=== PATIENT | male | born 1955 | race African-American/Black ===

== ENCOUNTER 2020-12-24 18:19 | Inpatient (IN) | payer MEDICAID ==
[~2020-12-24] VITALS: Ht 172.7 cm; Wt 132.4 kg
[2020-12-24] MEDS ORDERED: METHYLPREDNISOLONE SOD SUCC 125 MG/2 ML VIAL IV STA (19:02)
[2020-12-24] MEDS ORDERED: IPRATROPIUM BROMIDE (0.02%) 0.5MG/2.5ML NEB HHN STA (19:02)
[2020-12-24] MEDS ORDERED: ASPIRIN 81MG TABLET PO ONE (19:15)
[2020-12-24 19:29] LABS: BASOPHILS % 0.8 % (0.0-2.0); EOSINOPHILS % 0.8 % (0.0-5.0); HEMATOCRIT. 36.8 % (42.0-52.0); HEMOGLOBIN. 11.9 g/dL (14.0-18.0); MEAN CORPUSCULAR HEMOGLOBIN 25.1 pg (28.0-32.0); MEAN CORPUSCULAR VOLUME 77.5 fL (80.0-94.0); MEAN PLATELET VOLUME 8.7 fl (7.4-10.4); MONOCYTES % 9.2 % (2.0-8.0); NEUTROPHILS % 67.2 % (40.0-76.0); PLATELET 287 x1000/uL (130-400); RED BLOOD CELL COUNT 4.75 mill/uL (4.7-6.1); RED CELL DISTRIBUTION WIDTH 17.8 % (11.6-14.6)
[2020-12-24] MEDS: NITROGLYCERIN 50MG PREMIX 250 ML IV ONE ×2 (19:30→20:19)
[2020-12-24] MEDS ORDERED: NITROGLYCERIN 0.4MG TABLET SL SL PRN (19:30)
[2020-12-24 19:34] LABS: CHLORIDE 107 mEq/L (98-107)
[2020-12-24] MEDS ORDERED: FUROSEMIDE 40MG/4ML VIAL IVP ONE (19:45)
[2020-12-24] MEDS: ALBUTEROL (0.083%) 2.5MG/3ML NEB HHN SCH ×3 (20:56→21:20)
[2020-12-24 21:28] LABS: BG BASE EXCESS -2.2 mmol/L (-2.0-2.0); BG CARBOXYHEMOGLOBIN 0.3 % (0.5-1.5); BG DEOXYHEMOGLOBIN 2.1 % (0.0-5.0); BG FRACTION INSPIRED OXYGEN 30; BG HCO3 ACT 23.2 mmol/L (22.0-26.0); BG METHEMOGLOBIN 0.2 % (0.0-1.5); BG OXYGEN SATURATION 97.9 % (92.0-98.5); BG OXYHEMOGLOBIN 97.4 % (94.0-97.0); BG PO2 132.5 mmHg (75.0-100.0); BG SAMPLE SITE RIGHT RADIAL; BG TOTAL HEMOGLOBIN 11.8 g/dL (12.0-18.0); BG VENT MODE MASK - BIPAP
[2020-12-24] MEDS ORDERED: HEPARIN 60 UNITS/KG BOLUS IV NR (22:00)
[2020-12-24] MEDS ORDERED: HEPARIN BOLUS PRN aPTT <30 IV (22:00)
[2020-12-24] MEDS ORDERED: ADENOSINE 3 MG/ML 2ML VIAL IV ONE ×2 (22:00→22:30)
[2020-12-24] MEDS ORDERED: DILTIAZEM HCL 125 MG in DEXT 5% WATER 100 ML IV ONE ×2 (22:45→23:15)
[2020-12-24] MEDS ORDERED: DILTIAZEM HCL 5MG/ML 5ML VIAL IV ONE (22:45)
[2020-12-24] MEDS ORDERED: DILTIAZEM HCL 125 MG in DEXT 5% WATER 100 ML IV NR (23:15)
[2020-12-24] MEDS: HEPARIN 25,000 UNITS PREMIX 250 ML IV SCH (23:28)
[2020-12-25] MEDS ORDERED: SODIUM CHLORIDE 0.9% 500 ML IV ONE (00:45)
[2020-12-25] MEDS ORDERED: DIGOXIN 500MCG/2ML AMP IV ONE (01:00)
[2020-12-25] MEDS: ESMOLOL 2500MG PREMIX 250 ML IV SCH ×4 (03:39→15:44)
[2020-12-25 06:10] LABS: CLARITY URINE CLEAR (CLEAR); COLOR URINE YELLOW (YELLOW); KETONES URINE NEGATIVE (NEGATIVE); LEUKOCYTE ESTERASE URINE NEGATIVE (NEGATIVE); NITRITE URINE NEGATIVE (NEGATIVE); OCCULT BLOOD URINE 1+ (NEGATIVE); PH URINE 5.5 (4.5-8.0); PROTEIN URINE 3+ (NEGATIVE); SPECIFIC GRAVITY URINE 1.017 (1.005-1.030); UROBILINOGEN URINE 0.2 E.U./dL (0.2-1.0)
[2020-12-25] MEDS: HEPARIN BOLUS PRN aPTT 30-44 IV (06:47)
[2020-12-25] MEDS ORDERED: IPRATROPIUM/ALBUTEROL 0.5-3(2.5)MG/3ML NEB HHN PRN (17:30)
[2020-12-25] MEDS ORDERED: HYDROCODONE/ACETAMINOPHEN 5/325MG TABLET PO PRN (17:30)
[2020-12-25] MEDS ORDERED: ACETAMINOPHEN 325MG TABLET PO PRN (17:30)
[2020-12-25] MEDS: FUROSEMIDE 40MG/4ML VIAL IVP SCH (18:49)
[2020-12-25 21:01] LABS: BASOPHILS % 0.5 % (0.0-2.0); HEMATOCRIT. 34.4 % (42.0-52.0); HEMOGLOBIN. 11.4 g/dL (14.0-18.0); LYMPHOCYTES % 13.2 % (20.0-50.0); MEAN CORPUSCULAR HEMOGLOBIN 25.6 pg (28.0-32.0); MEAN CORPUSCULAR VOLUME 77.1 fL (80.0-94.0); MEAN PLATELET VOLUME 8.4 fl (7.4-10.4); NEUTROPHILS % 76.3 % (40.0-76.0); PLATELET 279 x1000/uL (130-400); RED BLOOD CELL COUNT 4.47 mill/uL (4.7-6.1); RED CELL DISTRIBUTION WIDTH 17.3 % (11.6-14.6)
[2020-12-25 22:06] LABS: FOLIC ACID (FOLATE) SERUM 13.6 ng/mL (>5.38)
[2020-12-26] VITALS (74 sets, daily range): BP systolic 81–180; BP diastolic 37–139
[2020-12-26] MEDS: ESMOLOL 2500MG PREMIX 250 ML IV SCH ×2 (00:56→06:43)
[2020-12-26] MEDS: HEPARIN BOLUS PRN aPTT 30-44 IV (00:58)
[2020-12-26] MEDS: HEPARIN 25,000 UNITS PREMIX 250 ML IV SCH ×2 (01:07→06:43)
[2020-12-26] MEDS ORDERED: LIDOCAINE HCL/EPINEPHRINE 1%-EPI 1:100,000 50 ML VIAL INFIL ONE (03:15)
[2020-12-26] MEDS ORDERED: LIDOCAINE HCL 1% 20ML VIAL (Pyxis) INJ INFIL ONE (03:15)
[2020-12-26] MEDS: FUROSEMIDE 40MG/4ML VIAL IVP SCH (07:51)
[2020-12-26 07:56] LABS: BASOPHILS % 0.3 % (0.0-2.0); EOSINOPHILS % 0.1 % (0.0-5.0); HEMATOCRIT. 35.8 % (42.0-52.0); HEMOGLOBIN. 11.7 g/dL (14.0-18.0); LYMPHOCYTES % 15.2 % (20.0-50.0); MEAN CORPUSCULAR HEMOGLOBIN 25.3 pg (28.0-32.0); MEAN CORPUSCULAR VOLUME 77.1 fL (80.0-94.0); MEAN PLATELET VOLUME 8.4 fl (7.4-10.4); NEUTROPHILS % 74.4 % (40.0-76.0); PLATELET 278 x1000/uL (130-400); RED BLOOD CELL COUNT 4.65 mill/uL (4.7-6.1); RED CELL DISTRIBUTION WIDTH 17.6 % (11.6-14.6)
[2020-12-26 09:46] LABS: *AMPHETAMINES SCREEN URINE NEGATIVE (NEGATIVE); *BARBITURATES SCREEN URINE NEGATIVE (NEGATIVE)
[2020-12-26 09:47] LABS: *BENZODIAZEPINES SCREEN URINE NEGATIVE (NEGATIVE); *COCAINE SCREEN URINE NEGATIVE (NEGATIVE); METHADONE URINE SCREEN NEGATIVE (NEGATIVE); OPIATES URINE SCREEN NEGATIVE (NEGATIVE); PHENCYCLIDINE URINE SCREEN NEGATIVE (NEGATIVE)
[2020-12-26 09:48] LABS: CANNABINOID URINE SCREEN NEGATIVE (NEGATIVE)
[2020-12-26] MEDS: ESMOLOL 2500MG PREMIX 250 ML IV PRN ×3 (10:23→18:23)
[2020-12-26] MEDS: FUROSEMIDE 100MG/10ML VIAL IVP SCH ×2 (11:07→20:01)
[2020-12-26] MEDS: METOLAZONE 5MG TABLET PO SCH ×2 (11:08→18:16)
[2020-12-26] MEDS: ENOXAPARIN 150MG/ML SYR SUBCUT SCH (11:08)
[2020-12-26] MEDS ORDERED: NALOXONE HCL 0.4MG/ML VIAL IV PRN (12:30)
[2020-12-26] MEDS: DILTIAZEM HCL 60MG TABLET PO SCH ×2 (12:49→22:07)
[2020-12-26] MEDS ORDERED: DIGOXIN 500MCG/2ML AMP IV NR (14:00)
[2020-12-26] MEDS ORDERED: DILTIAZEM HCL 125 MG in DEXT 5% WATER 100 ML IV PRN (14:15)
[2020-12-26] MEDS ORDERED: INFLUENZA VACCINE 05/PF 0.5 ML SYRINGE IM ONE (16:00)
[2020-12-26] MEDS ORDERED: PNEUMOCOCCAL 23-VAL P-SAC VAC 0.5 ML IM ONE (16:00)
[2020-12-27] VITALS (96 sets, daily range): BP systolic 88–176; BP diastolic 37–143
[2020-12-27] MEDS: ESMOLOL 2500MG PREMIX 250 ML IV PRN ×2 (00:19→03:20)
[2020-12-27] MEDS: FUROSEMIDE 100MG/10ML VIAL IVP SCH ×3 (03:04→20:20)
[2020-12-27] MEDS: DILTIAZEM HCL 60MG TABLET PO SCH (05:28)
[2020-12-27 06:21] LABS: BASOPHILS % 0.2 % (0.0-2.0); LYMPHOCYTES % 20.3 % (20.0-50.0); MEAN CORPUSCULAR HEMOGLOBIN 24.9 pg (28.0-32.0); MEAN PLATELET VOLUME 8.9 fl (7.4-10.4); MONOCYTES % 9.6 % (2.0-8.0); NEUTROPHILS % 68.9 % (40.0-76.0); PLATELET 267 x1000/uL (130-400); RED CELL DISTRIBUTION WIDTH 16.9 % (11.6-14.6)
[2020-12-27] MEDS: METOLAZONE 5MG TABLET PO SCH ×2 (07:50→17:06)
[2020-12-27] MEDS: ENOXAPARIN 150MG/ML SYR SUBCUT SCH (07:50)
[2020-12-27] MEDS ORDERED: DILTIAZEM HCL 30MG TABLET PO SCH (10:15)
[2020-12-27] MEDS: POTASSIUM CHLORIDE 20MEQ/PACKET PO SCH (10:35)
[2020-12-27 13:28] LABS: BG BASE EXCESS 7.3 mmol/L (-2.0-2.0); BG CARBOXYHEMOGLOBIN 0.6 % (0.5-1.5); BG DEOXYHEMOGLOBIN 20.7 % (0.0-5.0); BG HCO3 ACT 36.3 mmol/L (22.0-26.0); BG METHEMOGLOBIN 0.2 % (0.0-1.5); BG OXYGEN SATURATION 79.1 % (92.0-98.5); BG OXYHEMOGLOBIN 78.5 % (94.0-97.0); BG PCO2 74.8 mmHg (35.0-45.0); BG PH 7.304 (7.350-7.450); BG PO2 49.3 mmHg (75.0-100.0); BG SAMPLE SITE LEFT RADIAL; BG TOTAL HEMOGLOBIN 13.1 g/dL (12.0-18.0); BG VENT MODE NASAL CANNULA
[2020-12-27] MEDS: DILTIAZEM HCL 90MG TABLET PO SCH ×2 (13:45→22:55)
[2020-12-27] MEDS: IPRATROPIUM/ALBUTEROL 0.5-3(2.5)MG/3ML NEB HHN SCH ×2 (16:39→20:39)
[2020-12-27 16:44] LABS: BG BASE EXCESS 9.9 mmol/L (-2.0-2.0); BG CARBOXYHEMOGLOBIN 0.3 % (0.5-1.5); BG DEOXYHEMOGLOBIN 2.2 % (0.0-5.0); BG FRACTION INSPIRED OXYGEN 50; BG HCO3 ACT 38.6 mmol/L (22.0-26.0); BG METHEMOGLOBIN 0.4 % (0.0-1.5); BG OXYGEN SATURATION 97.8 % (92.0-98.5); BG OXYHEMOGLOBIN 97.1 % (94.0-97.0); BG PCO2 74.3 mmHg (35.0-45.0); BG PH 7.334 (7.350-7.450); BG PO2 126.7 mmHg (75.0-100.0); BG SAMPLE SITE LEFT RADIAL; BG TOTAL HEMOGLOBIN 13.2 g/dL (12.0-18.0); BG TOTAL RESPIRATORY RATE 20 b/min; BG VENT MODE MASK - BIPAP
[2020-12-27 19:20] LABS: BG BASE EXCESS 8.6 mmol/L (-2.0-2.0); BG CARBOXYHEMOGLOBIN 0.5 % (0.5-1.5); BG DEOXYHEMOGLOBIN 1.8 % (0.0-5.0); BG FRACTION INSPIRED OXYGEN 40; BG HCO3 ACT 36.3 mmol/L (22.0-26.0); BG METHEMOGLOBIN 0.2 % (0.0-1.5); BG OXYGEN SATURATION 98.2 % (92.0-98.5); BG OXYHEMOGLOBIN 97.5 % (94.0-97.0); BG PCO2 65.5 mmHg (35.0-45.0); BG PH 7.362 (7.350-7.450); BG PO2 131.3 mmHg (75.0-100.0); BG TOTAL HEMOGLOBIN 13.3 g/dL (12.0-18.0); BG VENT MODE MASK - BIPAP
[2020-12-27] MEDS: CARVEDILOL 3.125 MG TABLET PO SCH (20:20)
[2020-12-27] MEDS: METHYLPREDNISOLONE SOD SUCC 125 MG/2 ML VIAL IV SCH (22:55)
[2020-12-28] VITALS (64 sets, daily range): BP systolic 114–187; BP diastolic 54–169
[2020-12-28] MEDS: CLONIDINE 0.1MG TABLET PO PRN (00:01)
[2020-12-28] MEDS: IPRATROPIUM/ALBUTEROL 0.5-3(2.5)MG/3ML NEB HHN SCH ×6 (00:26→20:00)
[2020-12-28] MEDS: METHYLPREDNISOLONE SOD SUCC 125 MG/2 ML VIAL IV SCH (05:21)
[2020-12-28] MEDS: FUROSEMIDE 100MG/10ML VIAL IVP SCH ×3 (05:21→19:48)
[2020-12-28] MEDS: DILTIAZEM HCL 90MG TABLET PO SCH ×3 (05:22→19:49)
[2020-12-28 06:20] LABS: BASOPHILS % 0.2 % (0.0-2.0); EOSINOPHILS % 0.2 % (0.0-5.0); HEMATOCRIT. 38.1 % (42.0-52.0); HEMOGLOBIN. 12.6 g/dL (14.0-18.0); LYMPHOCYTES % 10.4 % (20.0-50.0); MEAN CORPUSCULAR HEMOGLOBIN 25.2 pg (28.0-32.0); MEAN CORPUSCULAR VOLUME 76.5 fL (80.0-94.0); MEAN PLATELET VOLUME 8.7 fl (7.4-10.4); MONOCYTES % 1.9 % (2.0-8.0); NEUTROPHILS % 87.3 % (40.0-76.0); PLATELET 270 x1000/uL (130-400); RED BLOOD CELL COUNT 4.98 mill/uL (4.7-6.1); RED CELL DISTRIBUTION WIDTH 16.9 % (11.6-14.6)
[2020-12-28 06:38] LABS: PHOSPHORUS 4.8 mg/dL (2.5-4.9)
[2020-12-28] MEDS: CARVEDILOL 3.125 MG TABLET PO SCH (08:41)
[2020-12-28] MEDS: POTASSIUM CHLORIDE 20MEQ/PACKET PO SCH (08:41)
[2020-12-28] MEDS: ENOXAPARIN 150MG/ML SYR SUBCUT SCH (08:41)
[2020-12-28] MEDS: METOLAZONE 5MG TABLET PO SCH ×2 (08:41→17:33)
[2020-12-28] MEDS: METOPROLOL TARTRATE 25MG TABLET PO SCH ×2 (11:12→19:50)
[2020-12-28] MEDS ORDERED: POTASSIUM CHLORIDE 20MEQ TABLET SR PO SCH ×2 (17:15→17:30)
[2020-12-28] MEDS: LORAZEPAM 0.5MG TABLET PO PRN (17:33)
[2020-12-28] MEDS ORDERED: METOPROLOL TARTRATE 5MG/5ML VIAL IV PRN (18:30)
[2020-12-28] MEDS: METOPROLOL TARTRATE 5MG/5ML VIAL IV PRN (18:45)
[2020-12-28] MEDS: ONDANSETRON HCL 4MG/2ML INJ IV PRN (19:48)
[2020-12-29] VITALS (12 sets, daily range): BP systolic 132–168; BP diastolic 41–85
[2020-12-29] MEDS ORDERED: DIGOXIN 500MCG/2ML AMP IV SCH (00:15)
[2020-12-29] MEDS: METOPROLOL TARTRATE 5MG/5ML VIAL IV PRN (01:05)
[2020-12-29] MEDS: CLONIDINE 0.1MG TABLET PO PRN ×2 (03:02→09:04)
[2020-12-29] MEDS: FUROSEMIDE 100MG/10ML VIAL IVP SCH ×3 (04:00→20:23)
[2020-12-29] MEDS: DILTIAZEM HCL 90MG TABLET PO SCH (05:17)
[2020-12-29] MEDS: ONDANSETRON HCL 4MG/2ML INJ IV PRN (08:23)
[2020-12-29] MEDS: POTASSIUM CHLORIDE 20MEQ/PACKET PO SCH ×2 (08:23→16:38)
[2020-12-29] MEDS: ENOXAPARIN 150MG/ML SYR SUBCUT SCH (08:23)
[2020-12-29] MEDS: METOPROLOL TARTRATE 25MG TABLET PO SCH ×2 (08:23→21:22)
[2020-12-29] MEDS: IPRATROPIUM/ALBUTEROL 0.5-3(2.5)MG/3ML NEB HHN SCH ×5 (08:41→21:08)
[2020-12-29] MEDS: METOLAZONE 5MG TABLET PO SCH ×2 (08:55→16:38)
[2020-12-29 09:09] LABS: BG BASE EXCESS 18.9 mmol/L (-2.0-2.0); BG CARBOXYHEMOGLOBIN 0.3 % (0.5-1.5); BG DEOXYHEMOGLOBIN 2.4 % (0.0-5.0); BG FRACTION INSPIRED OXYGEN 40; BG OXYGEN SATURATION 97.6 % (92.0-98.5); BG OXYHEMOGLOBIN 97.3 % (94.0-97.0); BG PCO2 68.9 mmHg (35.0-45.0); BG PH 7.452 (7.350-7.450); BG PO2 106.6 mmHg (75.0-100.0); BG SAMPLE SITE RIGHT RADIAL; BG TOTAL HEMOGLOBIN 14.3 g/dL (12.0-18.0); BG VENT MODE MASK - BIPAP
[2020-12-29] MEDS ORDERED: DILTIAZEM HCL 30MG TABLET PO SCH (11:00)
[2020-12-29] MEDS: DILTIAZEM HCL 60MG TABLET PO SCH ×2 (14:18→22:08)
[2020-12-30] VITALS (12 sets, daily range): BP systolic 123–163; BP diastolic 46–95
[2020-12-30] MEDS: IPRATROPIUM/ALBUTEROL 0.5-3(2.5)MG/3ML NEB HHN SCH ×6 (02:29→20:00)
[2020-12-30] MEDS: FUROSEMIDE 100MG/10ML VIAL IVP SCH ×3 (04:20→20:15)
[2020-12-30] MEDS: DILTIAZEM HCL 60MG TABLET PO SCH ×3 (05:53→21:39)
[2020-12-30 06:17] LABS: BASOPHILS % 0.1 % (0.0-2.0); EOSINOPHILS % 0.4 % (0.0-5.0); HEMATOCRIT. 41.7 % (42.0-52.0); HEMOGLOBIN. 13.7 g/dL (14.0-18.0); MEAN CORPUSCULAR HEMOGLOBIN 25.6 pg (28.0-32.0); MEAN CORPUSCULAR VOLUME 77.8 fL (80.0-94.0); MEAN PLATELET VOLUME 8.7 fl (7.4-10.4); NEUTROPHILS % 72.5 % (40.0-76.0); PLATELET 275 x1000/uL (130-400); RED BLOOD CELL COUNT 5.36 mill/uL (4.7-6.1); RED CELL DISTRIBUTION WIDTH 16.8 % (11.6-14.6)
[2020-12-30 06:19] LABS: PHOSPHORUS 4.4 mg/dL (2.5-4.9)
[2020-12-30 08:45] LABS: BG BASE EXCESS 23.6 mmol/L (-2.0-2.0); BG CARBOXYHEMOGLOBIN 0.5 % (0.5-1.5); BG DEOXYHEMOGLOBIN 4.4 % (0.0-5.0); BG FRACTION INSPIRED OXYGEN 40; BG HCO3 ACT 50.8 mmol/L (22.0-26.0); BG METHEMOGLOBIN 0.3 % (0.0-1.5); BG OXYGEN SATURATION 95.6 % (92.0-98.5); BG OXYHEMOGLOBIN 94.8 % (94.0-97.0); BG PCO2 62.6 mmHg (35.0-45.0); BG PH 7.527 (7.350-7.450); BG PO2 77.7 mmHg (75.0-100.0); BG SAMPLE SITE RIGHT RADIAL; BG TOTAL HEMOGLOBIN 14.5 g/dL (12.0-18.0); BG TOTAL RESPIRATORY RATE 23 b/min; BG VENT MODE MASK - BIPAP
[2020-12-30] MEDS: ENOXAPARIN 150MG/ML SYR SUBCUT SCH (09:10)
[2020-12-30] MEDS: DOCUSATE SODIUM 100MG CAPSULE PO PRN (09:11)
[2020-12-30] MEDS: METOPROLOL TARTRATE 25MG TABLET PO SCH ×2 (09:11→20:15)
[2020-12-30] MEDS: METOLAZONE 5MG TABLET PO SCH ×2 (09:11→16:53)
[2020-12-30] MEDS: POTASSIUM CHLORIDE 20MEQ/PACKET PO SCH ×3 (09:11→16:53)
[2020-12-30 10:27] LABS: PHOSPHORUS 4.2 mg/dL (2.5-4.9)
[2020-12-30] MEDS: LORAZEPAM 0.5MG TABLET PO PRN ×3 (10:27→22:42)
[2020-12-30] MEDS: METOPROLOL TARTRATE 5MG/5ML VIAL IV PRN ×2 (14:05→22:39)
[2020-12-30] MEDS ORDERED: POTASSIUM CHLORIDE 20MEQ TABLET SR PO NR (15:00)
[2020-12-30 15:59] LABS: CREATINE KINASE 124 IU/L (39-308)
[2020-12-30] MEDS: CLONIDINE 0.1MG TABLET PO PRN (17:23)
[2020-12-30] MEDS: HYDROCODONE/ACETAMINOPHEN 5/325MG TABLET PO PRN (18:15)
[2020-12-30] MEDS ORDERED: METOPROLOL TARTRATE 5MG/5ML VIAL IV NR (18:45)
[2020-12-31] VITALS (12 sets, daily range): BP systolic 105–164; BP diastolic 48–94
[2020-12-31] MEDS: FUROSEMIDE 100MG/10ML VIAL IVP SCH ×3 (03:06→17:22)
[2020-12-31] MEDS: IPRATROPIUM/ALBUTEROL 0.5-3(2.5)MG/3ML NEB HHN SCH ×4 (04:00→20:40)
[2020-12-31] MEDS ORDERED: METOPROLOL TARTRATE 5MG/5ML VIAL IV NR (04:00)
[2020-12-31] MEDS: DILTIAZEM HCL 125 MG in DEXT 5% WATER 100 ML IV SCH ×2 (06:32→20:31)
[2020-12-31 07:59] LABS: BG BASE EXCESS 26.4 mmol/L (-2.0-2.0); BG CARBOXYHEMOGLOBIN 0.9 % (0.5-1.5); BG DEOXYHEMOGLOBIN 2.6 % (0.0-5.0); BG FRACTION INSPIRED OXYGEN 40; BG HCO3 ACT 54.9 mmol/L (22.0-26.0); BG METHEMOGLOBIN 0.2 % (0.0-1.5); BG OXYGEN SATURATION 97.4 % (92.0-98.5); BG OXYHEMOGLOBIN 96.3 % (94.0-97.0); BG PCO2 66.9 mmHg (35.0-45.0); BG PH 7.532 (7.350-7.450); BG PO2 96.5 mmHg (75.0-100.0); BG SAMPLE SITE LEFT RADIAL; BG TOTAL HEMOGLOBIN 16.2 g/dL (12.0-18.0); BG VENT MODE MASK - BIPAP
[2020-12-31] MEDS: ENOXAPARIN 150MG/ML SYR SUBCUT SCH (08:52)
[2020-12-31] MEDS: POTASSIUM CHLORIDE 20MEQ/PACKET PO SCH ×2 (08:52→17:22)
[2020-12-31] MEDS: METOLAZONE 5MG TABLET PO SCH (08:53)
[2020-12-31] MEDS: METOPROLOL TARTRATE 25MG TABLET PO SCH ×2 (08:53→20:29)
[2020-12-31] MEDS ORDERED: DILTIAZEM HCL 125 MG in DEXT 5% WATER 100 ML IV SCH (10:55)
[2020-12-31] MEDS: LORAZEPAM 0.5MG TABLET PO PRN (20:26)
[2021-01-01] VITALS (10 sets, daily range): BP systolic 124–154; BP diastolic 56–91
[2021-01-01] MEDS: HYDROCODONE/ACETAMINOPHEN 5/325MG TABLET PO PRN ×2 (02:08→11:48)
[2021-01-01] MEDS: LORAZEPAM 0.5MG TABLET PO PRN ×3 (02:08→17:17)
[2021-01-01] MEDS: IPRATROPIUM/ALBUTEROL 0.5-3(2.5)MG/3ML NEB HHN SCH ×4 (02:34→16:00)
[2021-01-01 07:28] LABS: INR 1.2; PROTHROMBIN TIME 12.3 sec (9.6-11.0)
[2021-01-01 07:32] LABS: BASOPHILS % 0.3 % (0.0-2.0); EOSINOPHILS % 1.6 % (0.0-5.0); HEMATOCRIT. 47.1 % (42.0-52.0); HEMOGLOBIN. 15.1 g/dL (14.0-18.0); LYMPHOCYTES % 14.9 % (20.0-50.0); MEAN CORPUSCULAR HEMOGLOBIN 25.3 pg (28.0-32.0); MEAN CORPUSCULAR VOLUME 79.1 fL (80.0-94.0); MEAN PLATELET VOLUME 9.1 fl (7.4-10.4); MONOCYTES % 9.3 % (2.0-8.0); NEUTROPHILS % 73.9 % (40.0-76.0); PLATELET 267 x1000/uL (130-400); RED BLOOD CELL COUNT 5.95 mill/uL (4.7-6.1); RED CELL DISTRIBUTION WIDTH 16.9 % (11.6-14.6)
[2021-01-01] MEDS: DILTIAZEM HCL 125 MG in DEXT 5% WATER 100 ML IV SCH ×3 (08:14→12:25)
[2021-01-01] MEDS ORDERED: DILTIAZEM HCL 125 MG in DEXT 5% WATER 100 ML IV SCH (08:15)
[2021-01-01] MEDS: FUROSEMIDE 100MG/10ML VIAL IVP SCH ×2 (09:12→17:17)
[2021-01-01] MEDS: METOLAZONE 5MG TABLET PO SCH (09:13)
[2021-01-01] MEDS: METOPROLOL TARTRATE 25MG TABLET PO SCH ×2 (09:13→21:20)
[2021-01-01] MEDS: POTASSIUM CHLORIDE 20MEQ/PACKET PO SCH ×2 (09:13→17:17)
[2021-01-01] MEDS: ENOXAPARIN 150MG/ML SYR SUBCUT SCH (09:14)
[2021-01-01] MEDS: DILTIAZEM HCL 5MG/ML 5ML VIAL IV PRN ×2 (10:20→17:23)
[2021-01-01] MEDS ORDERED: DILTIAZEM HCL 125 MG in DEXT 5% WATER 100 ML IV PRN (10:30)
[2021-01-01 11:24] LABS: BG BASE EXCESS 21.4 mmol/L (-2.0-2.0); BG CARBOXYHEMOGLOBIN 1.2 % (0.5-1.5); BG DEOXYHEMOGLOBIN 2.2 % (0.0-5.0); BG FRACTION INSPIRED OXYGEN 35; BG HCO3 ACT 50.1 mmol/L (22.0-26.0); BG METHEMOGLOBIN 0.3 % (0.0-1.5); BG OXYGEN SATURATION 97.8 % (92.0-98.5); BG OXYHEMOGLOBIN 96.3 % (94.0-97.0); BG PCO2 71.1 mmHg (35.0-45.0); BG PH 7.466 (7.350-7.450); BG PO2 103.4 mmHg (75.0-100.0); BG SAMPLE SITE LEFT RADIAL; BG TOTAL HEMOGLOBIN 15.4 g/dL (12.0-18.0); BG TOTAL RESPIRATORY RATE 22 b/min; BG VENT MODE MASK - BIPAP
[2021-01-01] MEDS: DILTIAZEM HCL 60MG TABLET PO SCH ×3 (13:27→21:20)
[2021-01-01] MEDS: METOPROLOL TARTRATE 5MG/5ML VIAL IV PRN (14:01)
[2021-01-01] MEDS: DOCUSATE SODIUM 100MG CAPSULE PO PRN (17:18)
[2021-01-01] MEDS ORDERED: METOPROLOL TARTRATE 5MG/5ML VIAL IV NR (19:45)
[2021-01-02] VITALS (12 sets, daily range): BP systolic 119–173; BP diastolic 53–92
[2021-01-02] MEDS: DILTIAZEM HCL 125 MG in DEXT 5% WATER 100 ML IV SCH ×3 (00:40→21:18)
[2021-01-02] MEDS: DILTIAZEM HCL 60MG TABLET PO SCH ×3 (06:04→21:14)
[2021-01-02 06:52] LABS: BASOPHILS % 0.3 % (0.0-2.0); EOSINOPHILS % 3.2 % (0.0-5.0); HEMATOCRIT. 47.6 % (42.0-52.0); LYMPHOCYTES % 15.4 % (20.0-50.0); MEAN CORPUSCULAR HEMOGLOBIN 24.9 pg (28.0-32.0); MEAN CORPUSCULAR VOLUME 78.8 fL (80.0-94.0); MEAN PLATELET VOLUME 9.5 fl (7.4-10.4); MONOCYTES % 8.8 % (2.0-8.0); NEUTROPHILS % 72.3 % (40.0-76.0); PLATELET 263 x1000/uL (130-400); RED BLOOD CELL COUNT 6.03 mill/uL (4.7-6.1)
[2021-01-02 07:27] LABS: HEPATITIS B SURFACE ANTIGEN NEGATIVE
[2021-01-02] MEDS: IPRATROPIUM/ALBUTEROL 0.5-3(2.5)MG/3ML NEB HHN SCH ×4 (07:53→20:20)
[2021-01-02] MEDS: ENOXAPARIN 150MG/ML SYR SUBCUT SCH (09:24)
[2021-01-02] MEDS: POTASSIUM CHLORIDE 20MEQ/PACKET PO SCH ×2 (09:24→17:26)
[2021-01-02] MEDS: METOLAZONE 5MG TABLET PO SCH (09:25)
[2021-01-02] MEDS: METOPROLOL TARTRATE 25MG TABLET PO SCH ×2 (09:25→21:14)
[2021-01-02] MEDS: FUROSEMIDE 100MG/10ML VIAL IVP SCH ×2 (09:26→17:00)
[2021-01-02 10:46] LABS: BG BASE EXCESS 18.6 mmol/L (-2.0-2.0); BG CARBOXYHEMOGLOBIN 1.2 % (0.5-1.5); BG DEOXYHEMOGLOBIN 5.4 % (0.0-5.0); BG FRACTION INSPIRED OXYGEN 32; BG METHEMOGLOBIN 0.2 % (0.0-1.5); BG OXYGEN SATURATION 94.5 % (92.0-98.5); BG OXYHEMOGLOBIN 93.2 % (94.0-97.0); BG PCO2 68.8 mmHg (35.0-45.0); BG PH 7.452 (7.350-7.450); BG PO2 75.7 mmHg (75.0-100.0); BG SAMPLE SITE LEFT RADIAL; BG TOTAL HEMOGLOBIN 15.4 g/dL (12.0-18.0); BG VENT MODE NASAL CANNULA
[2021-01-02] MEDS: DOCUSATE SODIUM 100MG CAPSULE PO PRN (12:31)
[2021-01-02] MEDS: LORAZEPAM 0.5MG TABLET PO PRN ×2 (12:31→21:15)
[2021-01-02] MEDS ORDERED: POTASSIUM CHLORIDE 20MEQ/PACKET PO NR (14:45)
[2021-01-02 19:09] LABS: PHOSPHORUS 4.2 mg/dL (2.5-4.9)
[2021-01-02] MEDS: CLONIDINE 0.1MG TABLET PO PRN (21:15)
[2021-01-03] VITALS (12 sets, daily range): BP systolic 119–185; BP diastolic 68–131
[2021-01-03] MEDS: IPRATROPIUM/ALBUTEROL 0.5-3(2.5)MG/3ML NEB HHN SCH ×6 (00:26→20:38)
[2021-01-03] MEDS ORDERED: DILTIAZEM HCL 125 MG in DEXT 5% WATER 100 ML IV SCH (01:00)
[2021-01-03] MEDS: DILTIAZEM HCL 60MG TABLET PO SCH ×3 (06:03→22:14)
[2021-01-03 06:33] LABS: BASOPHILS % 0.4 % (0.0-2.0); EOSINOPHILS % 2.2 % (0.0-5.0); HEMATOCRIT. 45.7 % (42.0-52.0); HEMOGLOBIN. 14.6 g/dL (14.0-18.0); LYMPHOCYTES % 15.5 % (20.0-50.0); MEAN CORPUSCULAR HEMOGLOBIN 25.4 pg (28.0-32.0); MEAN CORPUSCULAR VOLUME 79.7 fL (80.0-94.0); MEAN PLATELET VOLUME 9.5 fl (7.4-10.4); MONOCYTES % 9.1 % (2.0-8.0); NEUTROPHILS % 72.8 % (40.0-76.0); PLATELET 263 x1000/uL (130-400); RED BLOOD CELL COUNT 5.74 mill/uL (4.7-6.1); RED CELL DISTRIBUTION WIDTH 16.6 % (11.6-14.6)
[2021-01-03] MEDS: POTASSIUM CHLORIDE 20MEQ/PACKET PO SCH ×2 (08:49→16:19)
[2021-01-03] MEDS: METOPROLOL TARTRATE 25MG TABLET PO SCH (08:49)
[2021-01-03] MEDS ORDERED: ENOXAPARIN 150MG/ML SYR SUBCUT SCH (09:00)
[2021-01-03 11:43] LABS: BG BASE EXCESS 16.1 mmol/L (-2.0-2.0); BG CARBOXYHEMOGLOBIN 1.1 % (0.5-1.5); BG DEOXYHEMOGLOBIN 9.4 % (0.0-5.0); BG FRACTION INSPIRED OXYGEN 21; BG HCO3 ACT 42.8 mmol/L (22.0-26.0); BG METHEMOGLOBIN 0.1 % (0.0-1.5); BG OXYGEN SATURATION 90.5 % (92.0-98.5); BG OXYHEMOGLOBIN 89.4 % (94.0-97.0); BG PCO2 58.3 mmHg (35.0-45.0); BG PH 7.484 (7.350-7.450); BG PO2 58.8 mmHg (75.0-100.0); BG TOTAL HEMOGLOBIN 15.3 g/dL (12.0-18.0); BG VENT MODE ROOM AIR
[2021-01-03] MEDS ORDERED: NON FORMULARY PATIENT HOME MED XX SCH (13:00)
[2021-01-03] MEDS: CLONIDINE 0.1MG TABLET PO PRN (13:25)
[2021-01-03] MEDS: DILTIAZEM HCL 5MG/ML 5ML VIAL IV PRN (18:35)
[2021-01-03] MEDS: METOPROLOL TARTRATE 5MG/5ML VIAL IV PRN (20:05)
[2021-01-03] MEDS: LORAZEPAM 0.5MG TABLET PO PRN (20:06)
[2021-01-03] MEDS: CARVEDILOL 6.25 MG TABLET PO SCH (22:13)
[2021-01-03] MEDS: ONDANSETRON HCL 4MG/2ML INJ IV PRN (22:14)
[2021-01-03] MEDS: HYDROCODONE/ACETAMINOPHEN 5/325MG TABLET PO PRN (22:14)
[2021-01-03] MEDS: HYDRALAZINE 20MG/ML VIAL IV PRN (22:18)
[2021-01-04] VITALS (12 sets, daily range): BP systolic 111–171; BP diastolic 54–95
[2021-01-04] MEDS: IPRATROPIUM/ALBUTEROL 0.5-3(2.5)MG/3ML NEB HHN SCH (00:55)
[2021-01-04] MEDS ORDERED: DILTIAZEM HCL 125 MG in DEXT 5% WATER 100 ML IV SCH (01:00)
[2021-01-04] MEDS: DILTIAZEM HCL 60MG TABLET PO SCH ×2 (05:37→13:23)
[2021-01-04 06:28] LABS: HEMATOCRIT. 48.5 % (42.0-52.0); HEMOGLOBIN. 15.8 g/dL (14.0-18.0); MEAN CORPUSCULAR HEMOGLOBIN 25.9 pg (28.0-32.0); MEAN CORPUSCULAR VOLUME 79.3 fL (80.0-94.0); MEAN PLATELET VOLUME 9.7 fl (7.4-10.4); PLATELET 259 x1000/uL (130-400); RED BLOOD CELL COUNT 6.12 mill/uL (4.7-6.1); RED CELL DISTRIBUTION WIDTH 17.1 % (11.6-14.6)
[2021-01-04 06:53] LABS: ANTI-NUCLEAR ANTIBODIES DIRECT Negative (Negative)
[2021-01-04] MEDS: CARVEDILOL 6.25 MG TABLET PO SCH (09:52)
[2021-01-04] MEDS: IPRATROPIUM BROMIDE (0.02%) 0.5MG/2.5ML NEB HHN PRN ×2 (11:57→15:32)
[2021-01-04] MEDS: RISPERIDONE 0.25MG TABLET PO SCH (13:23)
[2021-01-04] MEDS: INSULIN LISPRO 100 UNITS/ML SUBCUT SCH ×3 (13:24→21:47)
[2021-01-04] MEDS: ONDANSETRON HCL 4MG/2ML INJ IV PRN (13:58)
[2021-01-04] MEDS ORDERED: DILTIAZEM HCL 30MG TABLET PO NR (14:26)
[2021-01-04 14:48] LABS: CLARITY URINE CLOUDY (CLEAR); COLOR URINE BLOODY (YELLOW); KETONES URINE TRACE (NEGATIVE); LEUKOCYTE ESTERASE URINE 2+ (NEGATIVE); NITRITE URINE NEGATIVE (NEGATIVE); OCCULT BLOOD URINE 3+ (NEGATIVE); PROTEIN URINE 3+ (NEGATIVE); SPECIFIC GRAVITY URINE 1.021 (1.005-1.030)
[2021-01-04] MEDS: PANTOPRAZOLE SODIUM 40 MG/VIAL IV SCH ×2 (14:54→21:45)
[2021-01-04 16:33] LABS: PLATELET ESTIMATE NORMAL
[2021-01-04] MEDS: DILTIAZEM HCL 125 MG in DEXT 5% WATER 100 ML IV SCH (17:13)
[2021-01-04] MEDS ORDERED: DIGOXIN 500MCG/2ML AMP IV SCH (17:44)
[2021-01-04] MEDS ORDERED: DEXTROSE 50% WATER 50ML SYRINGE IV PRN (19:30)
[2021-01-04] MEDS: BLOOD SUGAR DIAGNOSTIC STRIP TEST SCH (21:47)
[2021-01-04] MEDS: DILTIAZEM HCL 90MG TABLET PO SCH (21:47)
[2021-01-04] MEDS: METOPROLOL TARTRATE 25MG TABLET PO SCH (21:48)
[2021-01-05] VITALS (11 sets, daily range): BP systolic 94–143; BP diastolic 27–76
[2021-01-05] MEDS ORDERED: NALOXONE HCL 0.4MG/ML VIAL IV PRN (01:30)
[2021-01-05] MEDS: HYDROCODONE/ACETAMINOPHEN 5/325MG TABLET PO PRN (01:35)
[2021-01-05] MEDS: LORAZEPAM 0.5MG TABLET PO PRN (01:35)
[2021-01-05] MEDS: DILTIAZEM HCL 125 MG in DEXT 5% WATER 100 ML IV SCH ×2 (04:26→17:00)
[2021-01-05] MEDS: DILTIAZEM HCL 90MG TABLET PO SCH ×3 (05:07→21:00)
[2021-01-05 06:54] LABS: BASOPHILS % 0.4 % (0.0-2.0); EOSINOPHILS % 3.6 % (0.0-5.0); HEMATOCRIT. 42.2 % (42.0-52.0); HEMOGLOBIN. 13.7 g/dL (14.0-18.0); LYMPHOCYTES % 19.5 % (20.0-50.0); MEAN CORPUSCULAR HEMOGLOBIN 25.6 pg (28.0-32.0); MEAN CORPUSCULAR VOLUME 78.8 fL (80.0-94.0); MEAN PLATELET VOLUME 10.2 fl (7.4-10.4); MONOCYTES % 11.3 % (2.0-8.0); NEUTROPHILS % 65.2 % (40.0-76.0); PLATELET 227 x1000/uL (130-400); RED BLOOD CELL COUNT 5.35 mill/uL (4.7-6.1); RED CELL DISTRIBUTION WIDTH 16.6 % (11.6-14.6)
[2021-01-05 07:28] LABS: INR 1.2; PROTHROMBIN TIME 12.4 sec (9.6-11.0)
[2021-01-05] MEDS: BLOOD SUGAR DIAGNOSTIC STRIP TEST SCH ×4 (07:30→20:58)
[2021-01-05] MEDS: IPRATROPIUM BROMIDE (0.02%) 0.5MG/2.5ML NEB HHN PRN ×2 (08:00→20:17)
[2021-01-05] MEDS: PANTOPRAZOLE SODIUM 40 MG/VIAL IV SCH ×2 (08:42→16:47)
[2021-01-05] MEDS: RISPERIDONE 0.25MG TABLET PO SCH (08:44)
[2021-01-05] MEDS: METOPROLOL TARTRATE 25MG TABLET PO SCH ×3 (08:44→21:00)
[2021-01-05] MEDS: INSULIN LISPRO 100 UNITS/ML SUBCUT SCH ×4 (09:03→20:59)
[2021-01-05 11:17] LABS: CREATINE KINASE 201 IU/L (39-308)
[2021-01-05] MEDS: SUCRALFATE 1G TABLET PO SCH ×3 (12:09→20:58)
[2021-01-05] MEDS: SODIUM CHLORIDE 0.45% 1,000 ML IV SCH (12:09)
[2021-01-05] MEDS ORDERED: CEFTRIAXONE 1 G PREMIX 50 ML IV SCH (15:30)
[2021-01-05 16:15] LABS: BG BASE EXCESS 17.5 mmol/L (-2.0-2.0); BG DEOXYHEMOGLOBIN 12.1 % (0.0-5.0); BG FRACTION INSPIRED OXYGEN 21; BG HCO3 ACT 45.3 mmol/L (22.0-26.0); BG METHEMOGLOBIN 0.2 % (0.0-1.5); BG OXYGEN SATURATION 87.8 % (92.0-98.5); BG OXYHEMOGLOBIN 86.7 % (94.0-97.0); BG PCO2 66.4 mmHg (35.0-45.0); BG PH 7.452 (7.350-7.450); BG SAMPLE SITE RIGHT RADIAL; BG TOTAL HEMOGLOBIN 14.7 g/dL (12.0-18.0); BG VENT MODE ROOM AIR
[2021-01-05] MEDS: CEFTRIAXONE 1,000 MG in DEXTROSE 5% WATER 50 ML IV SCH (16:48)
[2021-01-06] VITALS (11 sets, daily range): BP systolic 88–156; BP diastolic 54–121
[2021-01-06] MEDS: DILTIAZEM HCL 90MG TABLET PO SCH ×3 (05:10→21:16)
[2021-01-06] MEDS: METOPROLOL TARTRATE 25MG TABLET PO SCH ×3 (05:10→21:17)
[2021-01-06] MEDS: SODIUM CHLORIDE 0.45% 1,000 ML IV SCH ×2 (06:36→20:20)
[2021-01-06] MEDS: BLOOD SUGAR DIAGNOSTIC STRIP TEST SCH ×4 (07:30→21:18)
[2021-01-06 08:20] LABS: BASOPHILS % 0.7 % (0.0-2.0); EOSINOPHILS % 4.5 % (0.0-5.0); HEMATOCRIT. 43.6 % (42.0-52.0); HEMOGLOBIN. 13.5 g/dL (14.0-18.0); LYMPHOCYTES % 17.4 % (20.0-50.0); MEAN CORPUSCULAR HEMOGLOBIN 25.3 pg (28.0-32.0); MEAN CORPUSCULAR VOLUME 81.6 fL (80.0-94.0); MEAN PLATELET VOLUME 9.7 fl (7.4-10.4); MONOCYTES % 12.3 % (2.0-8.0); NEUTROPHILS % 65.1 % (40.0-76.0); PLATELET 185 x1000/uL (130-400); RED BLOOD CELL COUNT 5.34 mill/uL (4.7-6.1); RED CELL DISTRIBUTION WIDTH 16.7 % (11.6-14.6)
[2021-01-06] MEDS: SUCRALFATE 1G TABLET PO SCH ×4 (08:44→21:16)
[2021-01-06] MEDS: BISACODYL 5MG TABLET PO SCH (08:44)
[2021-01-06] MEDS: RISPERIDONE 0.25MG TABLET PO SCH (08:44)
[2021-01-06] MEDS: PANTOPRAZOLE SODIUM 40 MG/VIAL IV SCH ×2 (08:44→17:59)
[2021-01-06] MEDS: INSULIN LISPRO 100 UNITS/ML SUBCUT SCH ×4 (08:46→21:17)
[2021-01-06] MEDS ORDERED: POTASSIUM CHLORIDE 20MEQ/PACKET PO NR (09:30)
[2021-01-06] MEDS: PREDNISONE 20MG TABLET PO SCH (11:14)
[2021-01-06] MEDS ORDERED: BISACODYL 10MG SUPP PR NR (15:15)
[2021-01-06] MEDS: SORBITOL 70% SOLN 30ML PO SCH ×3 (17:59→23:46)
[2021-01-06] MEDS: CEFTRIAXONE 1,000 MG in DEXTROSE 5% WATER 50 ML IV SCH (17:59)
[2021-01-06] MEDS: METOCLOPRAMIDE HCL 10MG/2ML VIAL IV SCH ×3 (18:00→23:47)
[2021-01-06] MEDS: DOCUSATE SODIUM 250MG CAPSULE PO SCH (18:00)
[2021-01-06] MEDS: HYDRALAZINE 20MG/ML VIAL IV PRN (23:52)
[2021-01-07] VITALS (11 sets, daily range): BP systolic 129–182; BP diastolic 55–109
[2021-01-07] MEDS: CLONIDINE 0.1MG TABLET PO PRN (00:56)
[2021-01-07] MEDS: HYDROCODONE/ACETAMINOPHEN 5/325MG TABLET PO PRN ×2 (00:56→23:35)
[2021-01-07] MEDS: LORAZEPAM 0.5MG TABLET PO PRN (00:56)
[2021-01-07] MEDS: METOCLOPRAMIDE HCL 10MG/2ML VIAL IV SCH ×3 (05:40→23:20)
[2021-01-07] MEDS: SORBITOL 70% SOLN 30ML PO SCH ×4 (05:41→23:18)
[2021-01-07] MEDS: METOPROLOL TARTRATE 25MG TABLET PO SCH ×3 (05:41→22:00)
[2021-01-07] MEDS: DILTIAZEM HCL 90MG TABLET PO SCH ×3 (05:41→22:00)
[2021-01-07] MEDS: PANTOPRAZOLE SODIUM 40 MG/VIAL IV SCH ×2 (08:18→17:13)
[2021-01-07] MEDS: DOCUSATE SODIUM 250MG CAPSULE PO SCH ×2 (08:19→17:00)
[2021-01-07] MEDS: BISACODYL 5MG TABLET PO SCH (08:19)
[2021-01-07] MEDS: RISPERIDONE 0.25MG TABLET PO SCH (08:19)
[2021-01-07] MEDS: PREDNISONE 20MG TABLET PO SCH (08:21)
[2021-01-07] MEDS: SUCRALFATE 1G TABLET PO SCH ×4 (08:21→21:00)
[2021-01-07] MEDS: INSULIN LISPRO 100 UNITS/ML SUBCUT SCH ×4 (08:23→22:03)
[2021-01-07] MEDS: BLOOD SUGAR DIAGNOSTIC STRIP TEST SCH ×4 (08:23→21:58)
[2021-01-07 10:17] LABS: BASOPHILS % 0.4 % (0.0-2.0); EOSINOPHILS % 0.5 % (0.0-5.0); HEMATOCRIT. 46.2 % (42.0-52.0); HEMOGLOBIN. 14.9 g/dL (14.0-18.0); LYMPHOCYTES % 8.4 % (20.0-50.0); MEAN CORPUSCULAR HEMOGLOBIN 25.2 pg (28.0-32.0); MEAN PLATELET VOLUME 11.1 fl (7.4-10.4); MONOCYTES % 7.6 % (2.0-8.0); NEUTROPHILS % 83.1 % (40.0-76.0); PLATELET 278 x1000/uL (130-400); RED BLOOD CELL COUNT 5.92 mill/uL (4.7-6.1); RED CELL DISTRIBUTION WIDTH 16.4 % (11.6-14.6)
[2021-01-07 10:28] LABS: PHOSPHORUS 4.5 mg/dL (2.5-4.9)
[2021-01-07] MEDS ORDERED: DIGOXIN 500MCG/2ML AMP IV NR (10:43)
[2021-01-07] MEDS: HYDRALAZINE 20MG/ML VIAL IV PRN ×2 (11:12→21:44)
[2021-01-07] MEDS ORDERED: POTASSIUM CHLORIDE INJ 40 MEQ in DEXT 5% WATER 250 ML IV ONE ×2 (11:45→20:30)
[2021-01-07] MEDS ORDERED: POTASSIUM CHLORIDE 20MEQ/PACKET PO NR (12:00)
[2021-01-07] MEDS ORDERED: KCL 20MEQ/100ML PREMIX 100 ML IV SCH ×2 (13:00→21:00)
[2021-01-07] MEDS: DILTIAZEM HCL 5MG/ML 5ML VIAL IV PRN ×2 (13:19→21:44)
[2021-01-07] MEDS: SODIUM CHLORIDE 0.45% 1,000 ML IV SCH (14:04)
[2021-01-07] MEDS: CEFTRIAXONE 1,000 MG in DEXTROSE 5% WATER 50 ML IV SCH (17:13)
[2021-01-07] MEDS: DILTIAZEM HCL 125 MG in DEXT 5% WATER 100 ML IV SCH (18:12)
[2021-01-07] MEDS: ONDANSETRON HCL 4MG/2ML INJ IV PRN (22:02)
[2021-01-08] VITALS (12 sets, daily range): BP systolic 106–167; BP diastolic 30–83
[2021-01-08] MEDS: SORBITOL 70% SOLN 30ML PO SCH (05:10)
[2021-01-08] MEDS: METOPROLOL TARTRATE 25MG TABLET PO SCH ×3 (05:12→21:07)
[2021-01-08] MEDS: DILTIAZEM HCL 90MG TABLET PO SCH ×3 (05:14→21:08)
[2021-01-08] MEDS: SODIUM CHLORIDE 0.45% 1,000 ML IV SCH ×2 (05:40→21:08)
[2021-01-08] MEDS: METOCLOPRAMIDE HCL 10MG/2ML VIAL IV SCH (06:00)
[2021-01-08] MEDS: BLOOD SUGAR DIAGNOSTIC STRIP TEST SCH ×4 (07:30→20:59)
[2021-01-08] MEDS: SUCRALFATE 1G TABLET PO SCH ×4 (07:30→21:06)
[2021-01-08] MEDS: INSULIN LISPRO 100 UNITS/ML SUBCUT SCH ×4 (08:00→21:08)
[2021-01-08] MEDS: PREDNISONE 20MG TABLET PO SCH (08:00)
[2021-01-08] MEDS: DOCUSATE SODIUM 250MG CAPSULE PO SCH ×2 (09:00→17:41)
[2021-01-08] MEDS: PANTOPRAZOLE SODIUM 40 MG/VIAL IV SCH ×2 (09:00→17:00)
[2021-01-08 09:01] LABS: BASOPHILS % 0.6 % (0.0-2.0); EOSINOPHILS % 1.1 % (0.0-5.0); HEMATOCRIT. 43.8 % (42.0-52.0); HEMOGLOBIN. 14.7 g/dL (14.0-18.0); LYMPHOCYTES % 15.5 % (20.0-50.0); MEAN CORPUSCULAR HEMOGLOBIN 26.1 pg (28.0-32.0); MEAN CORPUSCULAR VOLUME 77.6 fL (80.0-94.0); MEAN PLATELET VOLUME 10.3 fl (7.4-10.4); MONOCYTES % 12.9 % (2.0-8.0); NEUTROPHILS % 69.9 % (40.0-76.0); PLATELET 243 x1000/uL (130-400); RED BLOOD CELL COUNT 5.64 mill/uL (4.7-6.1); RED CELL DISTRIBUTION WIDTH 16.4 % (11.6-14.6)
[2021-01-08] MEDS: RISPERIDONE 0.25MG TABLET PO SCH (10:30)
[2021-01-08] MEDS: BISACODYL 5MG TABLET PO SCH (10:30)
[2021-01-08 12:31] LABS: BG BASE EXCESS 13.4 mmol/L (-2.0-2.0); BG CARBOXYHEMOGLOBIN 0.6 % (0.5-1.5); BG DEOXYHEMOGLOBIN 4.8 % (0.0-5.0); BG FRACTION INSPIRED OXYGEN 28; BG HCO3 ACT 39.6 mmol/L (22.0-26.0); BG METHEMOGLOBIN 0.7 % (0.0-1.5); BG OXYGEN SATURATION 95.1 % (92.0-98.5); BG OXYHEMOGLOBIN 93.9 % (94.0-97.0); BG PCO2 54.8 mmHg (35.0-45.0); BG PH 7.477 (7.350-7.450); BG PO2 74.9 mmHg (75.0-100.0); BG SAMPLE SITE RIGHT RADIAL; BG TOTAL HEMOGLOBIN 15.4 g/dL (12.0-18.0); BG VENT MODE NASAL CANNULA
[2021-01-08] MEDS: DILTIAZEM HCL 125 MG in DEXT 5% WATER 100 ML IV SCH (13:00)
[2021-01-08] MEDS: KCL 20MEQ/100ML PREMIX 100 ML IV SCH ×2 (14:00→16:00)
[2021-01-08] MEDS: CEFTRIAXONE 1,000 MG in DEXTROSE 5% WATER 50 ML IV SCH (17:00)
[2021-01-09] VITALS (12 sets, daily range): BP systolic 110–185; BP diastolic 53–85
[2021-01-09] MEDS: DILTIAZEM HCL 90MG TABLET PO SCH ×3 (05:10→21:04)
[2021-01-09] MEDS: METOPROLOL TARTRATE 25MG TABLET PO SCH ×3 (05:10→21:05)
[2021-01-09] MEDS: SUCRALFATE 1G TABLET PO SCH ×4 (07:30→21:03)
[2021-01-09] MEDS: PREDNISONE 20MG TABLET PO SCH ×2 (08:00→09:52)
[2021-01-09] MEDS: INSULIN LISPRO 100 UNITS/ML SUBCUT SCH ×4 (08:00→21:00)
[2021-01-09] MEDS: BLOOD SUGAR DIAGNOSTIC STRIP TEST SCH ×4 (08:04→21:03)
[2021-01-09] MEDS ORDERED: LIDOCAINE HCL 1% 10 MG/ML 10ML VIAL ONE (08:16)
[2021-01-09] MEDS: RISPERIDONE 0.25MG TABLET PO SCH (09:00)
[2021-01-09] MEDS: BISACODYL 5MG TABLET PO SCH (09:00)
[2021-01-09 09:47] LABS: BASOPHILS % 0.8 % (0.0-2.0); EOSINOPHILS % 4.2 % (0.0-5.0); HEMATOCRIT. 39.1 % (42.0-52.0); MEAN CORPUSCULAR HEMOGLOBIN 26.2 pg (28.0-32.0); MEAN CORPUSCULAR VOLUME 78.7 fL (80.0-94.0); MEAN PLATELET VOLUME 10.1 fl (7.4-10.4); PLATELET 208 x1000/uL (130-400); RED BLOOD CELL COUNT 4.97 mill/uL (4.7-6.1); RED CELL DISTRIBUTION WIDTH 15.9 % (11.6-14.6)
[2021-01-09] MEDS: PANTOPRAZOLE SODIUM 40 MG/VIAL IV SCH ×2 (09:52→18:03)
[2021-01-09] MEDS: DOCUSATE SODIUM 250MG CAPSULE PO SCH ×2 (09:52→18:02)
[2021-01-09 10:03] LABS: PHOSPHORUS 4.2 mg/dL (2.5-4.9)
[2021-01-09] MEDS: CLONIDINE 0.1MG TABLET PO PRN (11:21)
[2021-01-09] MEDS: KCL 20MEQ/100ML PREMIX 100 ML IV SCH ×2 (13:12→17:47)
[2021-01-09] MEDS: ONDANSETRON HCL 4MG/2ML INJ IV PRN (14:45)
[2021-01-09] MEDS: LORAZEPAM 0.5MG TABLET PO PRN (14:45)
[2021-01-09] MEDS: CEFTRIAXONE 1,000 MG in DEXTROSE 5% WATER 50 ML IV SCH (17:00)
[2021-01-09] MEDS: DILTIAZEM HCL 125 MG in DEXT 5% WATER 100 ML IV SCH (17:48)
[2021-01-09] MEDS: SODIUM CHLORIDE 0.45% 1,000 ML IV SCH (21:03)
[2021-01-10] VITALS (12 sets, daily range): BP systolic 98–178; BP diastolic 46–83
[2021-01-10] MEDS: METOPROLOL TARTRATE 25MG TABLET PO SCH ×3 (05:20→20:56)
[2021-01-10] MEDS: DILTIAZEM HCL 90MG TABLET PO SCH ×3 (05:20→20:54)
[2021-01-10 07:16] LABS: BASOPHILS % 0.7 % (0.0-2.0); EOSINOPHILS % 5.5 % (0.0-5.0); HEMOGLOBIN. 12.5 g/dL (14.0-18.0); MEAN CORPUSCULAR HEMOGLOBIN 26.2 pg (28.0-32.0); MEAN CORPUSCULAR VOLUME 79.3 fL (80.0-94.0); MEAN PLATELET VOLUME 10.2 fl (7.4-10.4); MONOCYTES % 11.9 % (2.0-8.0); NEUTROPHILS % 62.9 % (40.0-76.0); PLATELET 203 x1000/uL (130-400); RED BLOOD CELL COUNT 4.79 mill/uL (4.7-6.1); RED CELL DISTRIBUTION WIDTH 16.4 % (11.6-14.6)
[2021-01-10] MEDS: INSULIN LISPRO 100 UNITS/ML SUBCUT SCH ×4 (08:00→20:58)
[2021-01-10] MEDS: BLOOD SUGAR DIAGNOSTIC STRIP TEST SCH ×4 (08:12→20:58)
[2021-01-10 08:15] LABS: PHOSPHORUS 4.1 mg/dL (2.5-4.9)
[2021-01-10] MEDS: RISPERIDONE 0.25MG TABLET PO SCH (08:18)
[2021-01-10] MEDS: DOCUSATE SODIUM 250MG CAPSULE PO SCH ×2 (08:18→17:15)
[2021-01-10] MEDS: BISACODYL 5MG TABLET PO SCH (08:18)
[2021-01-10] MEDS: SUCRALFATE 1G TABLET PO SCH ×4 (08:18→20:54)
[2021-01-10] MEDS: PANTOPRAZOLE SODIUM 40 MG/VIAL IV SCH ×2 (08:24→17:00)
[2021-01-10] MEDS ORDERED: POTASSIUM CHLORIDE INJ 40 MEQ in DEXT 5% WATER 250 ML IV ONE (09:15)
[2021-01-10 10:11] LABS: ANTI-MYELOPEROXIDASE AB < 9.0 U/mL (0.0-9.0); ANTI-PROTEINASE 3 ABS < 3.5 U/mL (0.0-3.5)
[2021-01-10] MEDS: KCL 20MEQ/100ML PREMIX 100 ML IV SCH ×2 (10:40→13:47)
[2021-01-10] MEDS: SODIUM CHLORIDE 0.45% 1,000 ML IV SCH ×2 (10:43→20:57)
[2021-01-10] MEDS: DILTIAZEM HCL 125 MG in DEXT 5% WATER 100 ML IV SCH (17:00)
[2021-01-10] MEDS: CEFTRIAXONE 1,000 MG in DEXTROSE 5% WATER 50 ML IV SCH (17:14)
[2021-01-11] VITALS (13 sets, daily range): BP systolic 127–170; BP diastolic 64–87
[2021-01-11] MEDS: HYDRALAZINE 20MG/ML VIAL IV PRN ×2 (04:48→22:07)
[2021-01-11] MEDS: METOPROLOL TARTRATE 25MG TABLET PO SCH ×3 (05:21→21:15)
[2021-01-11] MEDS: DILTIAZEM HCL 90MG TABLET PO SCH ×3 (05:21→21:15)
[2021-01-11 06:29] LABS: BASOPHILS % 0.3 % (0.0-2.0); HEMATOCRIT. 36.5 % (42.0-52.0); HEMOGLOBIN. 11.9 g/dL (14.0-18.0); LYMPHOCYTES % 16.1 % (20.0-50.0); MEAN CORPUSCULAR VOLUME 79.5 fL (80.0-94.0); MEAN PLATELET VOLUME 10.1 fl (7.4-10.4); MONOCYTES % 8.8 % (2.0-8.0); NEUTROPHILS % 70.8 % (40.0-76.0); PLATELET 192 x1000/uL (130-400); RED BLOOD CELL COUNT 4.59 mill/uL (4.7-6.1); RED CELL DISTRIBUTION WIDTH 16.5 % (11.6-14.6)
[2021-01-11 06:45] LABS: PHOSPHORUS 2.5 mg/dL (2.5-4.9)
[2021-01-11] MEDS: BLOOD SUGAR DIAGNOSTIC STRIP TEST SCH ×4 (07:58→20:16)
[2021-01-11] MEDS: INSULIN LISPRO 100 UNITS/ML SUBCUT SCH ×4 (08:00→20:39)
[2021-01-11] MEDS ORDERED: POTASSIUM CHLORIDE INJ 40 MEQ in DEXT 5% WATER 250 ML IV ONE (09:00)
[2021-01-11] MEDS: PREDNISONE 20MG TABLET PO SCH (09:52)
[2021-01-11] MEDS: RISPERIDONE 0.25MG TABLET PO SCH (09:53)
[2021-01-11] MEDS: PANTOPRAZOLE SODIUM 40 MG/VIAL IV SCH ×2 (09:53→17:12)
[2021-01-11] MEDS: SUCRALFATE 1G TABLET PO SCH ×4 (09:53→20:43)
[2021-01-11] MEDS: BISACODYL 5MG TABLET PO SCH (09:53)
[2021-01-11] MEDS: DOCUSATE SODIUM 250MG CAPSULE PO SCH ×2 (09:53→17:12)
[2021-01-11] MEDS ORDERED: KCL 20MEQ/100ML PREMIX 100 ML IV SCH (11:00)
[2021-01-11 13:07] LABS: ATYPICAL P-ANCA <1:20 titer (Neg:<1:20); CYTOPLASMIC C-ANCA <1:20 titer (Neg:<1:20); PERINUCLEAR P-ANCA <1:20 titer (Neg:<1:20)
[2021-01-11] MEDS: SODIUM CHLORIDE 0.45% 1,000 ML IV SCH (17:11)
[2021-01-11] MEDS: DILTIAZEM HCL 125 MG in DEXT 5% WATER 100 ML IV SCH (18:12)
[2021-01-11] MEDS: QUETIAPINE FUMARATE 25MG TABLET PO SCH (20:39)
[2021-01-12] VITALS (8 sets, daily range): BP systolic 147–184; BP diastolic 59–95
[2021-01-12] MEDS: HYDRALAZINE 20MG/ML VIAL IV PRN (04:13)
[2021-01-12] MEDS: METOPROLOL TARTRATE 25MG TABLET PO SCH ×3 (05:17→20:57)
[2021-01-12] MEDS: DILTIAZEM HCL 90MG TABLET PO SCH ×3 (05:17→20:57)
[2021-01-12 07:03] LABS: BASOPHILS % 0.5 % (0.0-2.0); EOSINOPHILS % 2.1 % (0.0-5.0); HEMATOCRIT. 38.5 % (42.0-52.0); HEMOGLOBIN. 12.6 g/dL (14.0-18.0); LYMPHOCYTES % 14.4 % (20.0-50.0); MEAN CORPUSCULAR HEMOGLOBIN 25.8 pg (28.0-32.0); MEAN CORPUSCULAR VOLUME 78.6 fL (80.0-94.0); MEAN PLATELET VOLUME 9.7 fl (7.4-10.4); MONOCYTES % 9.5 % (2.0-8.0); NEUTROPHILS % 73.5 % (40.0-76.0); PLATELET 231 x1000/uL (130-400); RED CELL DISTRIBUTION WIDTH 16.7 % (11.6-14.6)
[2021-01-12] MEDS: BLOOD SUGAR DIAGNOSTIC STRIP TEST SCH ×4 (07:30→21:49)
[2021-01-12] MEDS: INSULIN LISPRO 100 UNITS/ML SUBCUT SCH ×4 (08:00→20:56)
[2021-01-12] MEDS: BISACODYL 5MG TABLET PO SCH (08:47)
[2021-01-12] MEDS: SUCRALFATE 1G TABLET PO SCH ×4 (08:47→20:56)
[2021-01-12] MEDS: PREDNISONE 20MG TABLET PO SCH (08:47)
[2021-01-12] MEDS: DOCUSATE SODIUM 250MG CAPSULE PO SCH ×2 (08:47→18:38)
[2021-01-12] MEDS: PANTOPRAZOLE SODIUM 40 MG/VIAL IV SCH ×2 (08:48→18:38)
[2021-01-12] MEDS: RISPERIDONE 1MG TABLET PO SCH (08:48)
[2021-01-12] MEDS ORDERED: POTASSIUM CHLORIDE 20MEQ/PACKET PO SCH (09:30)
[2021-01-12] MEDS: SODIUM CHLORIDE 0.45% 1,000 ML IV SCH (09:40)
[2021-01-12] MEDS: IPRATROPIUM BROMIDE (0.02%) 0.5MG/2.5ML NEB HHN PRN ×2 (10:20→12:55)
[2021-01-12] MEDS: PREDNISONE 10MG TABLET PO SCH (12:29)
[2021-01-12] MEDS: ENOXAPARIN 150MG/ML SYR SUBCUT SCH (12:30)
[2021-01-12] MEDS: DILTIAZEM HCL 125 MG in DEXT 5% WATER 100 ML IV SCH (17:00)
[2021-01-12] MEDS: QUETIAPINE FUMARATE 25MG TABLET PO SCH (20:57)
[2021-01-13] VITALS: BP 135/76
[2021-01-13] MEDS: DILTIAZEM HCL 90MG TABLET PO SCH ×3 (06:19→20:53)
[2021-01-13] MEDS: METOPROLOL TARTRATE 25MG TABLET PO SCH ×3 (06:20→20:53)
[2021-01-13] MEDS: CLONIDINE 0.1MG TABLET PO PRN (06:20)
[2021-01-13 06:52] LABS: EOSINOPHILS % 2.7 % (0.0-5.0); HEMATOCRIT. 35.5 % (42.0-52.0); HEMOGLOBIN. 11.7 g/dL (14.0-18.0); LYMPHOCYTES % 18.7 % (20.0-50.0); MEAN PLATELET VOLUME 9.5 fl (7.4-10.4); MONOCYTES % 7.2 % (2.0-8.0); NEUTROPHILS % 70.4 % (40.0-76.0); PLATELET 225 x1000/uL (130-400); RED BLOOD CELL COUNT 4.49 mill/uL (4.7-6.1); RED CELL DISTRIBUTION WIDTH 16.6 % (11.6-14.6)
[2021-01-13 07:44] LABS: PHOSPHORUS 2.5 mg/dL (2.5-4.9)
[2021-01-13 08:00] VITALS: BP 150/72
[2021-01-13] MEDS: SUCRALFATE 1G TABLET PO SCH ×4 (08:00→20:49)
[2021-01-13] MEDS: BLOOD SUGAR DIAGNOSTIC STRIP TEST SCH ×4 (08:00→20:51)
[2021-01-13] MEDS: INSULIN LISPRO 100 UNITS/ML SUBCUT SCH ×4 (08:00→20:53)
[2021-01-13] MEDS: PANTOPRAZOLE SODIUM 40 MG/VIAL IV SCH ×2 (08:58→17:54)
[2021-01-13] MEDS: PREDNISONE 10MG TABLET PO SCH (08:58)
[2021-01-13] MEDS: DOCUSATE SODIUM 250MG CAPSULE PO SCH ×2 (08:58→17:54)
[2021-01-13] MEDS: BISACODYL 5MG TABLET PO SCH (08:58)
[2021-01-13] MEDS: RISPERIDONE 1MG TABLET PO SCH (08:58)
[2021-01-13] MEDS: ENOXAPARIN 150MG/ML SYR SUBCUT SCH (11:37)
[2021-01-13 12:00] VITALS: BP 134/82
[2021-01-13] MEDS ORDERED: POTASSIUM CHLORIDE INJ 40 MEQ in DEXT 5% WATER 250 ML IV SCH (13:00)
[2021-01-13 16:00] VITALS: BP 141/64
[2021-01-13] MEDS: DILTIAZEM HCL 125 MG in DEXT 5% WATER 100 ML IV SCH (17:54)
[2021-01-13 20:02] VITALS: BP 140/80
[2021-01-13] MEDS: QUETIAPINE FUMARATE 25MG TABLET PO SCH (20:49)
[2021-01-14] VITALS: BP 150/78
[2021-01-14 04:00] VITALS: BP 132/93
[2021-01-14] MEDS: DILTIAZEM HCL 90MG TABLET PO SCH ×3 (05:13→21:06)
[2021-01-14] MEDS: METOPROLOL TARTRATE 25MG TABLET PO SCH ×3 (05:14→21:07)
[2021-01-14 08:00] VITALS: BP 141/79
[2021-01-14] MEDS: INSULIN LISPRO 100 UNITS/ML SUBCUT SCH ×4 (08:00→21:09)
[2021-01-14] MEDS: BLOOD SUGAR DIAGNOSTIC STRIP TEST SCH ×4 (08:24→21:10)
[2021-01-14] MEDS: DOCUSATE SODIUM 250MG CAPSULE PO SCH ×2 (08:25→17:10)
[2021-01-14] MEDS: PREDNISONE 10MG TABLET PO SCH (08:25)
[2021-01-14] MEDS: PANTOPRAZOLE SODIUM 40 MG/VIAL IV SCH ×2 (08:25→17:09)
[2021-01-14] MEDS: RISPERIDONE 1MG TABLET PO SCH (08:25)
[2021-01-14] MEDS: BISACODYL 5MG TABLET PO SCH (08:25)
[2021-01-14] MEDS: SUCRALFATE 1G TABLET PO SCH ×4 (08:25→21:16)
[2021-01-14 08:43] LABS: BASOPHILS % 0.8 % (0.0-2.0); EOSINOPHILS % 5.2 % (0.0-5.0); HEMATOCRIT. 39.4 % (42.0-52.0); LYMPHOCYTES % 30.7 % (20.0-50.0); MEAN CORPUSCULAR HEMOGLOBIN 26.2 pg (28.0-32.0); MEAN CORPUSCULAR VOLUME 79.4 fL (80.0-94.0); MEAN PLATELET VOLUME 9.6 fl (7.4-10.4); MONOCYTES % 7.4 % (2.0-8.0); NEUTROPHILS % 55.9 % (40.0-76.0); PLATELET 249 x1000/uL (130-400); RED BLOOD CELL COUNT 4.96 mill/uL (4.7-6.1); RED CELL DISTRIBUTION WIDTH 16.6 % (11.6-14.6)
[2021-01-14] MEDS ORDERED: DIGOXIN 500MCG/2ML AMP IV NR (11:00)
[2021-01-14 12:00] VITALS: BP 91/50
[2021-01-14] MEDS ORDERED: KCL 20MEQ/100ML PREMIX 100 ML IV NR (12:00)
[2021-01-14] MEDS: ENOXAPARIN 150MG/ML SYR SUBCUT SCH ×2 (12:25→21:08)
[2021-01-14] MEDS ORDERED: POTASSIUM CHLORIDE INJ 40 MEQ in DEXT 5% WATER 250 ML IV NR (14:00)
[2021-01-14 16:00] VITALS: BP 130/82
[2021-01-14 16:38] LABS: BG BASE EXCESS 4.6 mmol/L (-2.0-2.0); BG CARBOXYHEMOGLOBIN 0.5 % (0.5-1.5); BG DEOXYHEMOGLOBIN 5.6 % (0.0-5.0); BG FRACTION INSPIRED OXYGEN 21; BG HCO3 ACT 29.3 mmol/L (22.0-26.0); BG METHEMOGLOBIN 0.1 % (0.0-1.5); BG OXYGEN SATURATION 94.4 % (92.0-98.5); BG OXYHEMOGLOBIN 93.8 % (94.0-97.0); BG PCO2 43.6 mmHg (35.0-45.0); BG PH 7.445 (7.350-7.450); BG PO2 69.3 mmHg (75.0-100.0); BG SAMPLE SITE RIGHT RADIAL; BG TOTAL HEMOGLOBIN 13.5 g/dL (12.0-18.0); BG VENT MODE ROOM AIR
[2021-01-14] MEDS ORDERED: DILTIAZEM HCL 5MG/ML 5ML VIAL IV NR (16:45)
[2021-01-14] MEDS ORDERED: POTASSIUM CHLORIDE 20MEQ/PACKET PO NR (16:45)
[2021-01-14] MEDS: DILTIAZEM HCL 125 MG in DEXT 5% WATER 100 ML IV SCH (17:11)
[2021-01-14 20:00] VITALS: BP 158/85
[2021-01-14] MEDS: QUETIAPINE FUMARATE 25MG TABLET PO SCH (21:07)
[2021-01-14] MEDS: DILTIAZEM HCL 5MG/ML 5ML VIAL IV PRN (21:57)
[2021-01-15] VITALS (20 sets, daily range): BP systolic 123–168; BP diastolic 51–93
[2021-01-15] MEDS ORDERED: DILTIAZEM HCL 5MG/ML 5ML VIAL IV NR (01:00)
[2021-01-15] MEDS: DILTIAZEM HCL 90MG TABLET PO SCH ×4 (03:58→23:36)
[2021-01-15] MEDS: METOPROLOL TARTRATE 25MG TABLET PO SCH ×3 (05:34→21:21)
[2021-01-15] MEDS: HYDRALAZINE 20MG/ML VIAL IV PRN (07:09)
[2021-01-15 07:11] LABS: CHLORIDE 99 mEq/L (98-107)
[2021-01-15 07:20] LABS: BASOPHILS % 0.6 % (0.0-2.0); EOSINOPHILS % 3.1 % (0.0-5.0); HEMATOCRIT. 39.1 % (42.0-52.0); HEMOGLOBIN. 12.9 g/dL (14.0-18.0); LYMPHOCYTES % 31.9 % (20.0-50.0); MEAN PLATELET VOLUME 9.1 fl (7.4-10.4); MONOCYTES % 8.3 % (2.0-8.0); NEUTROPHILS % 56.1 % (40.0-76.0); PLATELET 288 x1000/uL (130-400); RED BLOOD CELL COUNT 4.95 mill/uL (4.7-6.1); RED CELL DISTRIBUTION WIDTH 16.3 % (11.6-14.6)
[2021-01-15] MEDS: INSULIN LISPRO 100 UNITS/ML SUBCUT SCH ×4 (07:31→20:05)
[2021-01-15] MEDS: BLOOD SUGAR DIAGNOSTIC STRIP TEST SCH ×4 (07:31→20:04)
[2021-01-15] MEDS: SUCRALFATE 1G TABLET PO SCH ×4 (07:32→20:04)
[2021-01-15] MEDS: DOCUSATE SODIUM 250MG CAPSULE PO SCH ×2 (09:00→17:00)
[2021-01-15] MEDS: BISACODYL 5MG TABLET PO SCH (09:00)
[2021-01-15] MEDS: PANTOPRAZOLE SODIUM 40 MG/VIAL IV SCH ×2 (09:10→17:33)
[2021-01-15] MEDS: RISPERIDONE 1MG TABLET PO SCH (09:10)
[2021-01-15] MEDS: PREDNISONE 10MG TABLET PO SCH (09:11)
[2021-01-15] MEDS: ENOXAPARIN 150MG/ML SYR SUBCUT SCH ×2 (09:11→20:04)
[2021-01-15] MEDS: DILTIAZEM HCL 125 MG in DEXT 5% WATER 100 ML IV SCH ×2 (11:18→17:50)
[2021-01-15] MEDS: POTASSIUM CHLORIDE 20MEQ TABLET SR PO SCH (13:03)
[2021-01-15] MEDS: QUETIAPINE FUMARATE 25MG TABLET PO SCH (20:03)
[2021-01-16] VITALS (9 sets, daily range): BP systolic 98–154; BP diastolic 50–81
[2021-01-16] MEDS: DILTIAZEM HCL 125 MG in DEXT 5% WATER 100 ML IV SCH (04:34)
[2021-01-16] MEDS: DILTIAZEM HCL 90MG TABLET PO SCH ×4 (05:38→23:08)
[2021-01-16] MEDS: METOPROLOL TARTRATE 25MG TABLET PO SCH ×3 (05:39→21:13)
[2021-01-16 07:15] LABS: BASOPHILS % 0.6 % (0.0-2.0); EOSINOPHILS % 3.2 % (0.0-5.0); HEMATOCRIT. 38.5 % (42.0-52.0); HEMOGLOBIN. 12.6 g/dL (14.0-18.0); MEAN CORPUSCULAR HEMOGLOBIN 25.5 pg (28.0-32.0); MEAN CORPUSCULAR VOLUME 77.9 fL (80.0-94.0); MONOCYTES % 6.2 % (2.0-8.0); PLATELET 304 x1000/uL (130-400); RED BLOOD CELL COUNT 4.94 mill/uL (4.7-6.1); RED CELL DISTRIBUTION WIDTH 16.7 % (11.6-14.6)
[2021-01-16] MEDS: PREDNISONE 10MG TABLET PO SCH (07:20)
[2021-01-16] MEDS: SUCRALFATE 1G TABLET PO SCH ×4 (07:20→21:09)
[2021-01-16] MEDS: BLOOD SUGAR DIAGNOSTIC STRIP TEST SCH ×4 (07:20→21:00)
[2021-01-16] MEDS: INSULIN LISPRO 100 UNITS/ML SUBCUT SCH ×4 (07:36→21:12)
[2021-01-16 07:41] LABS: PHOSPHORUS 3.3 mg/dL (2.5-4.9)
[2021-01-16] MEDS: ENOXAPARIN 150MG/ML SYR SUBCUT SCH ×2 (08:41→21:09)
[2021-01-16] MEDS: POTASSIUM CHLORIDE 20MEQ TABLET SR PO SCH (08:41)
[2021-01-16] MEDS: PANTOPRAZOLE SODIUM 40 MG/VIAL IV SCH ×2 (08:41→18:11)
[2021-01-16] MEDS: RISPERIDONE 1MG TABLET PO SCH (08:41)
[2021-01-16] MEDS: DOCUSATE SODIUM 250MG CAPSULE PO SCH ×2 (08:42→17:00)
[2021-01-16] MEDS: BISACODYL 5MG TABLET PO SCH (08:42)
[2021-01-16] MEDS ORDERED: MAGNESIUM 2 G PREMIX 50 ML IV NR (10:30)
[2021-01-16] MEDS: QUETIAPINE FUMARATE 25MG TABLET PO SCH (21:09)
[2021-01-17] VITALS: BP 150/55
[2021-01-17] MEDS: DILTIAZEM HCL 125 MG in DEXT 5% WATER 100 ML IV SCH (03:34)
[2021-01-17 04:00] VITALS: BP 143/80
[2021-01-17] MEDS: METOPROLOL TARTRATE 25MG TABLET PO SCH ×3 (05:01→21:05)
[2021-01-17] MEDS: DILTIAZEM HCL 90MG TABLET PO SCH ×3 (05:02→17:27)
[2021-01-17 08:00] VITALS: BP 138/70
[2021-01-17] MEDS: BLOOD SUGAR DIAGNOSTIC STRIP TEST SCH ×4 (08:14→21:00)
[2021-01-17 09:10] LABS: EOSINOPHILS % 2.8 % (0.0-5.0); HEMATOCRIT. 39.5 % (42.0-52.0); HEMOGLOBIN. 13.1 g/dL (14.0-18.0); LYMPHOCYTES % 25.7 % (20.0-50.0); MEAN CORPUSCULAR VOLUME 78.4 fL (80.0-94.0); MONOCYTES % 6.5 % (2.0-8.0); PLATELET 347 x1000/uL (130-400); RED BLOOD CELL COUNT 5.04 mill/uL (4.7-6.1); RED CELL DISTRIBUTION WIDTH 16.2 % (11.6-14.6)
[2021-01-17] MEDS: PANTOPRAZOLE SODIUM 40 MG/VIAL IV SCH ×2 (09:21→17:26)
[2021-01-17] MEDS: SUCRALFATE 1G TABLET PO SCH ×4 (09:22→21:04)
[2021-01-17] MEDS: RISPERIDONE 1MG TABLET PO SCH (09:22)
[2021-01-17] MEDS: POTASSIUM CHLORIDE 20MEQ TABLET SR PO SCH ×2 (09:22→17:27)
[2021-01-17] MEDS: DOCUSATE SODIUM 250MG CAPSULE PO SCH ×2 (09:22→17:27)
[2021-01-17] MEDS: BISACODYL 5MG TABLET PO SCH (09:24)
[2021-01-17] MEDS: INSULIN LISPRO 100 UNITS/ML SUBCUT SCH ×4 (09:24→21:00)
[2021-01-17] MEDS: ENOXAPARIN 150MG/ML SYR SUBCUT SCH (09:24)
[2021-01-17 09:46] LABS: PHOSPHORUS 3.4 mg/dL (2.5-4.9)
[2021-01-17] MEDS ORDERED: POTASSIUM CHLORIDE 20MEQ TABLET SR PO SCH (10:30)
[2021-01-17] MEDS ORDERED: DIGOXIN 500MCG/2ML AMP IV NR (11:30)
[2021-01-17 12:00] VITALS: BP 146/64
[2021-01-17] MEDS ORDERED: SORBITOL 70% SOLN 30ML PO NR (14:45)
[2021-01-17] MEDS: DIGOXIN 500MCG/2ML AMP IV NR ×2 (15:30→15:50)
[2021-01-17 16:00] VITALS: BP 149/69
[2021-01-17] MEDS: METOCLOPRAMIDE HCL 10MG/2ML VIAL IV SCH (17:26)
[2021-01-17 19:40] LABS: HEMATOCRIT 38.5 % (42.0-52.0); HEMOGLOBIN 12.4 g/dL (14.0-18.0)
[2021-01-17 20:00] VITALS: BP 166/77
[2021-01-17] MEDS: QUETIAPINE FUMARATE 25MG TABLET PO SCH (21:04)
[2021-01-18] VITALS (7 sets, daily range): BP systolic 109–155; BP diastolic 50–76
[2021-01-18] MEDS: METOCLOPRAMIDE HCL 10MG/2ML VIAL IV SCH ×5 (00:09→23:04)
[2021-01-18] MEDS: DILTIAZEM HCL 90MG TABLET PO SCH ×5 (00:09→23:06)
[2021-01-18] MEDS: METOPROLOL TARTRATE 25MG TABLET PO SCH ×3 (05:41→21:44)
[2021-01-18 06:37] LABS: BASOPHILS % 0.7 % (0.0-2.0); HEMATOCRIT. 34.1 % (42.0-52.0); HEMOGLOBIN. 11.3 g/dL (14.0-18.0); LYMPHOCYTES % 24.3 % (20.0-50.0); MEAN CORPUSCULAR HEMOGLOBIN 25.8 pg (28.0-32.0); MEAN CORPUSCULAR VOLUME 77.9 fL (80.0-94.0); MEAN PLATELET VOLUME 9.3 fl (7.4-10.4); MONOCYTES % 6.8 % (2.0-8.0); NEUTROPHILS % 65.2 % (40.0-76.0); PLATELET 287 x1000/uL (130-400); RED BLOOD CELL COUNT 4.38 mill/uL (4.7-6.1); RED CELL DISTRIBUTION WIDTH 16.1 % (11.6-14.6)
[2021-01-18] MEDS: BLOOD SUGAR DIAGNOSTIC STRIP TEST SCH ×4 (07:55→21:00)
[2021-01-18] MEDS: INSULIN LISPRO 100 UNITS/ML SUBCUT SCH ×4 (07:55→21:44)
[2021-01-18] MEDS: RISPERIDONE 1MG TABLET PO SCH (08:52)
[2021-01-18] MEDS: POTASSIUM CHLORIDE 20MEQ TABLET SR PO SCH (08:52)
[2021-01-18] MEDS: DOCUSATE SODIUM 250MG CAPSULE PO SCH ×2 (08:52→17:24)
[2021-01-18] MEDS: BISACODYL 5MG TABLET PO SCH (08:52)
[2021-01-18] MEDS: SUCRALFATE 1G TABLET PO SCH ×4 (08:53→21:43)
[2021-01-18] MEDS: PANTOPRAZOLE SODIUM 40 MG/VIAL IV SCH ×2 (08:53→17:24)
[2021-01-18] MEDS ORDERED: DIATR MEGLU/DIATRIZOATE SOLN 30ML PO SCH (11:15)
[2021-01-18] MEDS: DEXT 5%/0.45% NACL KCL 20MEQ/L 1,000 ML IV SCH (12:46)
[2021-01-18] MEDS ORDERED: SORBITOL 70% SOLN 30ML PO NR (15:45)
[2021-01-18] MEDS: POTASSIUM CHLORIDE 20MEQ/PACKET PO SCH (17:25)
[2021-01-18] MEDS: QUETIAPINE FUMARATE 25MG TABLET PO SCH (21:44)
[2021-01-19] VITALS (11 sets, daily range): BP systolic 105–143; BP diastolic 47–77
[2021-01-19] MEDS: DEXT 5%/0.45% NACL KCL 20MEQ/L 1,000 ML IV SCH (05:39)
[2021-01-19] MEDS: METOCLOPRAMIDE HCL 10MG/2ML VIAL IV SCH ×3 (05:40→17:45)
[2021-01-19] MEDS: METOPROLOL TARTRATE 25MG TABLET PO SCH ×3 (05:41→21:17)
[2021-01-19] MEDS: DILTIAZEM HCL 90MG TABLET PO SCH ×3 (05:41→17:45)
[2021-01-19] MEDS: BLOOD SUGAR DIAGNOSTIC STRIP TEST SCH ×4 (07:30→21:18)
[2021-01-19] MEDS ORDERED: NA PHOS,M-B/NA PHOS,DI-BA ENEMA 118ML PR NR (08:00)
[2021-01-19] MEDS: INSULIN LISPRO 100 UNITS/ML SUBCUT SCH ×4 (08:00→21:18)
[2021-01-19 08:41] LABS: BASOPHILS % 0.5 % (0.0-2.0); EOSINOPHILS % 3.7 % (0.0-5.0); HEMATOCRIT. 34.8 % (42.0-52.0); HEMOGLOBIN. 11.3 g/dL (14.0-18.0); LYMPHOCYTES % 20.4 % (20.0-50.0); MEAN CORPUSCULAR HEMOGLOBIN 26.3 pg (28.0-32.0); MEAN CORPUSCULAR VOLUME 80.7 fL (80.0-94.0); MEAN PLATELET VOLUME 9.5 fl (7.4-10.4); MONOCYTES % 8.3 % (2.0-8.0); NEUTROPHILS % 67.1 % (40.0-76.0); PLATELET 271 x1000/uL (130-400); RED BLOOD CELL COUNT 4.31 mill/uL (4.7-6.1); RED CELL DISTRIBUTION WIDTH 16.5 % (11.6-14.6)
[2021-01-19] MEDS: RISPERIDONE 1MG TABLET PO SCH (09:05)
[2021-01-19] MEDS: PANTOPRAZOLE SODIUM 40 MG/VIAL IV SCH ×2 (09:05→17:44)
[2021-01-19] MEDS: DOCUSATE SODIUM 250MG CAPSULE PO SCH ×2 (09:06→17:45)
[2021-01-19] MEDS: POTASSIUM CHLORIDE 20MEQ/PACKET PO SCH (09:06)
[2021-01-19] MEDS: BISACODYL 5MG TABLET PO SCH (09:06)
[2021-01-19] MEDS: SUCRALFATE 1G TABLET PO SCH ×4 (09:06→21:17)
[2021-01-19] MEDS ORDERED: SORBITOL 70% SOLN 30ML PO NR (15:00)
[2021-01-19] MEDS: QUETIAPINE FUMARATE 25MG TABLET PO SCH (21:16)
[2021-01-19] MEDS: ENOXAPARIN 150MG/ML SYR SUBCUT SCH (21:17)
[2021-01-20] VITALS (7 sets, daily range): BP systolic 111–161; BP diastolic 61–83
[2021-01-20] MEDS: METOCLOPRAMIDE HCL 10MG/2ML VIAL IV SCH ×4 (00:23→17:43)
[2021-01-20] MEDS: DILTIAZEM HCL 90MG TABLET PO SCH ×4 (00:23→17:43)
[2021-01-20] MEDS: DEXT 5%/0.45% NACL KCL 20MEQ/L 1,000 ML IV SCH ×2 (05:13→14:30)
[2021-01-20] MEDS: METOPROLOL TARTRATE 25MG TABLET PO SCH ×3 (05:14→21:20)
[2021-01-20] MEDS: BLOOD SUGAR DIAGNOSTIC STRIP TEST SCH ×4 (07:30→21:09)
[2021-01-20] MEDS: INSULIN LISPRO 100 UNITS/ML SUBCUT SCH ×4 (08:00→21:20)
[2021-01-20] MEDS: PANTOPRAZOLE SODIUM 40 MG/VIAL IV SCH ×2 (09:04→17:42)
[2021-01-20] MEDS: ENOXAPARIN 150MG/ML SYR SUBCUT SCH ×2 (09:05→21:20)
[2021-01-20] MEDS: BISACODYL 5MG TABLET PO SCH (09:05)
[2021-01-20] MEDS: RISPERIDONE 1MG TABLET PO SCH (09:05)
[2021-01-20] MEDS: SUCRALFATE 1G TABLET PO SCH ×4 (09:05→21:20)
[2021-01-20] MEDS: DOCUSATE SODIUM 250MG CAPSULE PO SCH ×2 (09:05→17:43)
[2021-01-20 12:20] LABS: BASOPHILS % 1.2 % (0.0-2.0); EOSINOPHILS % 4.6 % (0.0-5.0); HEMATOCRIT. 33.8 % (42.0-52.0); HEMOGLOBIN. 11.2 g/dL (14.0-18.0); LYMPHOCYTES % 19.6 % (20.0-50.0); MEAN CORPUSCULAR HEMOGLOBIN 25.7 pg (28.0-32.0); MEAN CORPUSCULAR VOLUME 78.1 fL (80.0-94.0); MEAN PLATELET VOLUME 9.1 fl (7.4-10.4); MONOCYTES % 9.7 % (2.0-8.0); NEUTROPHILS % 64.9 % (40.0-76.0); PLATELET 285 x1000/uL (130-400); RED BLOOD CELL COUNT 4.33 mill/uL (4.7-6.1); RED CELL DISTRIBUTION WIDTH 16.5 % (11.6-14.6)
[2021-01-20] MEDS: QUETIAPINE FUMARATE 25MG TABLET PO SCH (21:20)
[2021-01-21] VITALS (10 sets, daily range): BP systolic 105–158; BP diastolic 56–106
[2021-01-21] MEDS: DEXT 5%/0.45% NACL KCL 20MEQ/L 1,000 ML IV SCH ×2 (00:33→21:28)
[2021-01-21] MEDS: DILTIAZEM HCL 90MG TABLET PO SCH ×4 (00:33→18:06)
[2021-01-21] MEDS: METOCLOPRAMIDE HCL 10MG/2ML VIAL IV SCH ×4 (00:35→18:06)
[2021-01-21] MEDS: METOPROLOL TARTRATE 25MG TABLET PO SCH ×3 (06:26→21:24)
[2021-01-21 06:49] LABS: BASOPHILS % 0.8 % (0.0-2.0); EOSINOPHILS % 4.2 % (0.0-5.0); HEMATOCRIT. 35.7 % (42.0-52.0); HEMOGLOBIN. 11.6 g/dL (14.0-18.0); LYMPHOCYTES % 28.8 % (20.0-50.0); MEAN CORPUSCULAR VOLUME 79.8 fL (80.0-94.0); MEAN PLATELET VOLUME 9.1 fl (7.4-10.4); MONOCYTES % 7.8 % (2.0-8.0); NEUTROPHILS % 58.4 % (40.0-76.0); PLATELET 321 x1000/uL (130-400); RED BLOOD CELL COUNT 4.47 mill/uL (4.7-6.1); RED CELL DISTRIBUTION WIDTH 16.6 % (11.6-14.6)
[2021-01-21] MEDS: BLOOD SUGAR DIAGNOSTIC STRIP TEST SCH ×4 (07:30→21:27)
[2021-01-21] MEDS: INSULIN LISPRO 100 UNITS/ML SUBCUT SCH ×4 (07:58→21:27)
[2021-01-21] MEDS: ENOXAPARIN 150MG/ML SYR SUBCUT SCH ×2 (09:34→21:23)
[2021-01-21] MEDS: PANTOPRAZOLE SODIUM 40 MG/VIAL IV SCH ×2 (09:34→18:06)
[2021-01-21] MEDS: DOCUSATE SODIUM 250MG CAPSULE PO SCH ×2 (09:34→18:06)
[2021-01-21] MEDS: BISACODYL 5MG TABLET PO SCH (09:34)
[2021-01-21] MEDS: RISPERIDONE 1MG TABLET PO SCH (09:34)
[2021-01-21] MEDS: SUCRALFATE 1G TABLET PO SCH ×4 (09:34→21:24)
[2021-01-21] MEDS: QUETIAPINE FUMARATE 25MG TABLET PO SCH (21:24)
[2021-01-22] VITALS: BP 128/66
[2021-01-22] MEDS: DILTIAZEM HCL 90MG TABLET PO SCH ×4 (00:22→17:13)
[2021-01-22] MEDS: METOCLOPRAMIDE HCL 10MG/2ML VIAL IV SCH ×4 (00:22→17:11)
[2021-01-22 04:00] VITALS: BP 123/86
[2021-01-22] MEDS: METOPROLOL TARTRATE 25MG TABLET PO SCH ×3 (05:39→21:32)
[2021-01-22 07:22] LABS: BASOPHILS % 1.1 % (0.0-2.0); EOSINOPHILS % 4.4 % (0.0-5.0); HEMATOCRIT. 32.6 % (42.0-52.0); HEMOGLOBIN. 10.9 g/dL (14.0-18.0); LYMPHOCYTES % 32.3 % (20.0-50.0); MEAN CORPUSCULAR HEMOGLOBIN 26.3 pg (28.0-32.0); MEAN CORPUSCULAR VOLUME 78.8 fL (80.0-94.0); MEAN PLATELET VOLUME 8.4 fl (7.4-10.4); MONOCYTES % 8.9 % (2.0-8.0); NEUTROPHILS % 53.3 % (40.0-76.0); PLATELET 281 x1000/uL (130-400); RED BLOOD CELL COUNT 4.13 mill/uL (4.7-6.1); RED CELL DISTRIBUTION WIDTH 16.6 % (11.6-14.6)
[2021-01-22 08:00] VITALS: BP 117/64
[2021-01-22] MEDS: INSULIN LISPRO 100 UNITS/ML SUBCUT SCH ×4 (08:00→21:00)
[2021-01-22] MEDS: RISPERIDONE 1MG TABLET PO SCH (08:07)
[2021-01-22] MEDS: SUCRALFATE 1G TABLET PO SCH ×4 (08:07→21:32)
[2021-01-22] MEDS: BLOOD SUGAR DIAGNOSTIC STRIP TEST SCH ×4 (08:07→21:32)
[2021-01-22] MEDS: PANTOPRAZOLE SODIUM 40 MG/VIAL IV SCH ×2 (08:07→17:11)
[2021-01-22] MEDS: ENOXAPARIN 150MG/ML SYR SUBCUT SCH ×2 (08:08→21:32)
[2021-01-22] MEDS: DOCUSATE SODIUM 250MG CAPSULE PO SCH ×2 (08:08→17:11)
[2021-01-22 08:26] LABS: PHOSPHORUS 2.7 mg/dL (2.5-4.9)
[2021-01-22 11:35] VITALS: BP 146/90
[2021-01-22] MEDS ORDERED: MAGNESIUM 1 G PREMIX 100 ML IV SCH (12:00)
[2021-01-22] MEDS: MAGNESIUM OXIDE 400MG TABLET PO SCH (14:23)
[2021-01-22 15:47] VITALS: BP 127/73
[2021-01-22] MEDS: DEXT 5%/0.45% NACL KCL 20MEQ/L 1,000 ML IV SCH (17:11)
[2021-01-22 20:00] VITALS: BP 147/93
[2021-01-22] MEDS: QUETIAPINE FUMARATE 25MG TABLET PO SCH (21:32)
[2021-01-23] VITALS (8 sets, daily range): BP systolic 131–164; BP diastolic 61–96
[2021-01-23] MEDS: METOCLOPRAMIDE HCL 10MG/2ML VIAL IV SCH ×4 (00:22→17:16)
[2021-01-23] MEDS: DILTIAZEM HCL 90MG TABLET PO SCH ×3 (00:23→12:59)
[2021-01-23] MEDS: METOPROLOL TARTRATE 25MG TABLET PO SCH ×3 (05:16→22:32)
[2021-01-23] MEDS: INSULIN LISPRO 100 UNITS/ML SUBCUT SCH ×4 (08:00→20:58)
[2021-01-23] MEDS: BLOOD SUGAR DIAGNOSTIC STRIP TEST SCH ×4 (08:19→21:00)
[2021-01-23] MEDS: PANTOPRAZOLE SODIUM 40 MG/VIAL IV SCH ×2 (08:31→17:16)
[2021-01-23] MEDS: SUCRALFATE 1G TABLET PO SCH ×4 (08:31→20:57)
[2021-01-23] MEDS: ENOXAPARIN 150MG/ML SYR SUBCUT SCH ×2 (08:31→20:57)
[2021-01-23] MEDS: MAGNESIUM OXIDE 400MG TABLET PO SCH (08:31)
[2021-01-23] MEDS: DEXT 5%/0.45% NACL KCL 20MEQ/L 1,000 ML IV SCH (08:32)
[2021-01-23] MEDS: RISPERIDONE 1MG TABLET PO SCH (08:32)
[2021-01-23] MEDS: QUETIAPINE FUMARATE 25MG TABLET PO SCH (20:57)
[2021-01-23] MEDS: HYDRALAZINE 20MG/ML VIAL IV PRN (22:24)
[2021-01-24] VITALS (7 sets, daily range): BP systolic 110–162; BP diastolic 7–87
[2021-01-24] MEDS: METOCLOPRAMIDE HCL 10MG/2ML VIAL IV SCH ×4 (01:22→16:57)
[2021-01-24] MEDS: DEXT 5%/0.45% NACL KCL 20MEQ/L 1,000 ML IV SCH (01:23)
[2021-01-24] MEDS: METOPROLOL TARTRATE 25MG TABLET PO SCH ×3 (06:01→21:04)
[2021-01-24] MEDS: BLOOD SUGAR DIAGNOSTIC STRIP TEST SCH ×4 (07:30→20:09)
[2021-01-24] MEDS: INSULIN LISPRO 100 UNITS/ML SUBCUT SCH ×4 (08:00→20:09)
[2021-01-24] MEDS: RISPERIDONE 1MG TABLET PO SCH (08:41)
[2021-01-24] MEDS: MAGNESIUM OXIDE 400MG TABLET PO SCH (08:41)
[2021-01-24] MEDS: PANTOPRAZOLE SODIUM 40 MG/VIAL IV SCH ×2 (08:41→16:56)
[2021-01-24] MEDS: ENOXAPARIN 150MG/ML SYR SUBCUT SCH ×2 (08:41→21:04)
[2021-01-24] MEDS: SUCRALFATE 1G TABLET PO SCH ×4 (08:41→21:03)
[2021-01-24] MEDS: DILTIAZEM HCL 90MG TABLET PO SCH ×2 (12:19→16:58)
[2021-01-24 16:40] LABS: BASOPHILS % 1.2 % (0.0-2.0); EOSINOPHILS % 5.6 % (0.0-5.0); HEMATOCRIT. 34.2 % (42.0-52.0); LYMPHOCYTES % 30.1 % (20.0-50.0); MEAN CORPUSCULAR HEMOGLOBIN 25.6 pg (28.0-32.0); MEAN CORPUSCULAR VOLUME 79.7 fL (80.0-94.0); MEAN PLATELET VOLUME 8.1 fl (7.4-10.4); MONOCYTES % 6.5 % (2.0-8.0); NEUTROPHILS % 56.6 % (40.0-76.0); PLATELET 296 x1000/uL (130-400); RED BLOOD CELL COUNT 4.29 mill/uL (4.7-6.1); RED CELL DISTRIBUTION WIDTH 16.8 % (11.6-14.6)
[2021-01-24] MEDS: QUETIAPINE FUMARATE 25MG TABLET PO SCH (21:03)
[2021-01-25] VITALS (7 sets, daily range): BP systolic 112–166; BP diastolic 57–89
[2021-01-25] MEDS: METOCLOPRAMIDE HCL 10MG/2ML VIAL IV SCH ×4 (01:13→18:36)
[2021-01-25] MEDS: DILTIAZEM HCL 90MG TABLET PO SCH ×4 (01:14→18:38)
[2021-01-25] MEDS: METOPROLOL TARTRATE 25MG TABLET PO SCH ×3 (06:19→21:00)
[2021-01-25] MEDS: INSULIN LISPRO 100 UNITS/ML SUBCUT SCH ×4 (08:00→21:00)
[2021-01-25] MEDS: DILTIAZEM HCL 5MG/ML 5ML VIAL IV PRN ×2 (08:10→22:19)
[2021-01-25] MEDS: SUCRALFATE 1G TABLET PO SCH ×4 (08:12→22:18)
[2021-01-25] MEDS: BLOOD SUGAR DIAGNOSTIC STRIP TEST SCH ×4 (08:15→20:59)
[2021-01-25] MEDS: RISPERIDONE 1MG TABLET PO SCH (08:32)
[2021-01-25] MEDS: MAGNESIUM OXIDE 400MG TABLET PO SCH (08:32)
[2021-01-25] MEDS: PANTOPRAZOLE SODIUM 40 MG/VIAL IV SCH ×2 (08:33→18:35)
[2021-01-25] MEDS: ENOXAPARIN 150MG/ML SYR SUBCUT SCH ×2 (08:34→19:49)
[2021-01-25 09:40] LABS: PHOSPHORUS 2.6 mg/dL (2.5-4.9)
[2021-01-25 09:48] LABS: EOSINOPHILS % 5.3 % (0.0-5.0); HEMATOCRIT. 34.7 % (42.0-52.0); HEMOGLOBIN. 11.2 g/dL (14.0-18.0); LYMPHOCYTES % 24.8 % (20.0-50.0); MEAN CORPUSCULAR HEMOGLOBIN 25.7 pg (28.0-32.0); MEAN CORPUSCULAR VOLUME 79.3 fL (80.0-94.0); MEAN PLATELET VOLUME 8.1 fl (7.4-10.4); MONOCYTES % 7.6 % (2.0-8.0); NEUTROPHILS % 61.3 % (40.0-76.0); PLATELET 288 x1000/uL (130-400); RED BLOOD CELL COUNT 4.37 mill/uL (4.7-6.1); RED CELL DISTRIBUTION WIDTH 16.9 % (11.6-14.6)
[2021-01-25] MEDS: QUETIAPINE FUMARATE 25MG TABLET PO SCH (19:49)
[2021-01-26] VITALS: BP 161/77
[2021-01-26] MEDS: METOCLOPRAMIDE HCL 10MG/2ML VIAL IV SCH ×5 (01:48→23:54)
[2021-01-26] MEDS: DILTIAZEM HCL 90MG TABLET PO SCH ×5 (01:49→23:55)
[2021-01-26 04:00] VITALS: BP 157/100
[2021-01-26] MEDS: SUCRALFATE 1G TABLET PO SCH ×4 (06:15→20:43)
[2021-01-26] MEDS: METOPROLOL TARTRATE 25MG TABLET PO SCH ×3 (06:16→20:43)
[2021-01-26 06:33] LABS: EOSINOPHILS % 4.5 % (0.0-5.0); HEMATOCRIT. 31.5 % (42.0-52.0); HEMOGLOBIN. 10.4 g/dL (14.0-18.0); LYMPHOCYTES % 30.5 % (20.0-50.0); MEAN CORPUSCULAR HEMOGLOBIN 26.4 pg (28.0-32.0); MEAN CORPUSCULAR VOLUME 79.7 fL (80.0-94.0); MEAN PLATELET VOLUME 8.3 fl (7.4-10.4); MONOCYTES % 6.6 % (2.0-8.0); NEUTROPHILS % 57.4 % (40.0-76.0); PLATELET 261 x1000/uL (130-400); RED BLOOD CELL COUNT 3.95 mill/uL (4.7-6.1); RED CELL DISTRIBUTION WIDTH 16.5 % (11.6-14.6)
[2021-01-26] MEDS: INSULIN LISPRO 100 UNITS/ML SUBCUT SCH ×4 (07:54→21:00)
[2021-01-26] MEDS: BLOOD SUGAR DIAGNOSTIC STRIP TEST SCH ×4 (07:54→20:45)
[2021-01-26 08:00] VITALS: BP 146/68
[2021-01-26] MEDS: PANTOPRAZOLE SODIUM 40 MG/VIAL IV SCH ×2 (08:04→17:31)
[2021-01-26] MEDS: RISPERIDONE 1MG TABLET PO SCH (08:04)
[2021-01-26] MEDS: ENOXAPARIN 150MG/ML SYR SUBCUT SCH ×2 (08:04→20:48)
[2021-01-26] MEDS: MAGNESIUM OXIDE 400MG TABLET PO SCH (08:04)
[2021-01-26] MEDS: HYDRALAZINE 20MG/ML VIAL IV PRN (08:05)
[2021-01-26] MEDS ORDERED: DILTIAZEM HCL 5MG/ML 5ML VIAL IV NR (10:45)
[2021-01-26 11:45] VITALS: BP 156/81
[2021-01-26 16:00] VITALS: BP 137/90
[2021-01-26] MEDS: LORAZEPAM 1MG TABLET PO PRN (18:34)
[2021-01-26 20:00] VITALS: BP 144/81
[2021-01-26] MEDS: QUETIAPINE FUMARATE 25MG TABLET PO SCH (20:43)
[2021-01-27] VITALS: BP 162/92
[2021-01-27 04:00] VITALS: BP 161/66
[2021-01-27] MEDS: METOPROLOL TARTRATE 25MG TABLET PO SCH ×3 (06:11→21:00)
[2021-01-27] MEDS: METOCLOPRAMIDE HCL 10MG/2ML VIAL IV SCH ×3 (06:12→18:18)
[2021-01-27] MEDS: DILTIAZEM HCL 90MG TABLET PO SCH ×3 (06:12→18:18)
[2021-01-27] MEDS: SUCRALFATE 1G TABLET PO SCH ×4 (06:13→21:00)
[2021-01-27] MEDS: LORAZEPAM 1MG TABLET PO PRN (06:30)
[2021-01-27 06:42] LABS: BASOPHILS % 0.8 % (0.0-2.0); EOSINOPHILS % 4.2 % (0.0-5.0); HEMATOCRIT. 30.3 % (42.0-52.0); HEMOGLOBIN. 10.3 g/dL (14.0-18.0); LYMPHOCYTES % 21.9 % (20.0-50.0); MEAN CORPUSCULAR HEMOGLOBIN 26.3 pg (28.0-32.0); MEAN CORPUSCULAR VOLUME 77.6 fL (80.0-94.0); MONOCYTES % 6.7 % (2.0-8.0); NEUTROPHILS % 66.4 % (40.0-76.0); PLATELET 255 x1000/uL (130-400); RED BLOOD CELL COUNT 3.91 mill/uL (4.7-6.1); RED CELL DISTRIBUTION WIDTH 16.7 % (11.6-14.6)
[2021-01-27 08:00] VITALS: BP 142/75
[2021-01-27] MEDS: INSULIN LISPRO 100 UNITS/ML SUBCUT SCH ×4 (08:00→21:00)
[2021-01-27] MEDS: BLOOD SUGAR DIAGNOSTIC STRIP TEST SCH ×4 (08:22→21:01)
[2021-01-27] MEDS: MAGNESIUM OXIDE 400MG TABLET PO SCH (08:23)
[2021-01-27] MEDS: PANTOPRAZOLE SODIUM 40 MG/VIAL IV SCH ×2 (08:23→18:18)
[2021-01-27] MEDS: RISPERIDONE 1MG TABLET PO SCH (08:23)
[2021-01-27] MEDS: ENOXAPARIN 150MG/ML SYR SUBCUT SCH (08:25)
[2021-01-27] MEDS ORDERED: DIGOXIN 500MCG/2ML AMP IV NR (10:45)
[2021-01-27 12:00] VITALS: BP 150/101
[2021-01-27 16:00] VITALS: BP 175/85
[2021-01-27] MEDS ORDERED: APIXABAN 5 MG TABLET PO SCH (19:00)
[2021-01-27 20:00] VITALS: BP 145/69
[2021-01-27] MEDS: APIXABAN 5 MG TABLET PO SCH (20:55)
[2021-01-27] MEDS: QUETIAPINE FUMARATE 25MG TABLET PO SCH (20:55)
[2021-01-28] VITALS (7 sets, daily range): BP systolic 122–169; BP diastolic 71–117
[2021-01-28] MEDS: METOCLOPRAMIDE HCL 10MG/2ML VIAL IV SCH ×4 (00:03→18:54)
[2021-01-28] MEDS: DILTIAZEM HCL 90MG TABLET PO SCH ×4 (00:03→18:54)
[2021-01-28] MEDS: METOPROLOL TARTRATE 25MG TABLET PO SCH ×3 (05:03→22:28)
[2021-01-28] MEDS: BLOOD SUGAR DIAGNOSTIC STRIP TEST SCH ×4 (07:30→21:00)
[2021-01-28] MEDS: INSULIN LISPRO 100 UNITS/ML SUBCUT SCH ×4 (08:00→21:00)
[2021-01-28] MEDS: SUCRALFATE 1G TABLET PO SCH ×4 (09:04→22:28)
[2021-01-28] MEDS: RISPERIDONE 1MG TABLET PO SCH (09:04)
[2021-01-28] MEDS: PANTOPRAZOLE SODIUM 40 MG/VIAL IV SCH ×2 (09:05→18:18)
[2021-01-28] MEDS: APIXABAN 5 MG TABLET PO SCH ×2 (09:05→18:19)
[2021-01-28] MEDS: MAGNESIUM OXIDE 400MG TABLET PO SCH (09:05)
[2021-01-28 17:23] LABS: BASOPHILS % 0.9 % (0.0-2.0); EOSINOPHILS % 4.4 % (0.0-5.0); HEMATOCRIT. 33.3 % (42.0-52.0); HEMOGLOBIN. 10.9 g/dL (14.0-18.0); MEAN CORPUSCULAR HEMOGLOBIN 25.7 pg (28.0-32.0); MEAN CORPUSCULAR VOLUME 78.4 fL (80.0-94.0); MEAN PLATELET VOLUME 8.4 fl (7.4-10.4); MONOCYTES % 6.8 % (2.0-8.0); NEUTROPHILS % 67.9 % (40.0-76.0); PLATELET 255 x1000/uL (130-400); RED BLOOD CELL COUNT 4.25 mill/uL (4.7-6.1); RED CELL DISTRIBUTION WIDTH 16.6 % (11.6-14.6)
[2021-01-28] MEDS: QUETIAPINE FUMARATE 25MG TABLET PO SCH (22:28)
[2021-01-29] VITALS: BP 127/86
[2021-01-29] MEDS: DILTIAZEM HCL 90MG TABLET PO SCH ×4 (02:06→19:01)
[2021-01-29] MEDS: METOCLOPRAMIDE HCL 10MG/2ML VIAL IV SCH ×4 (02:07→19:01)
[2021-01-29 04:00] VITALS: BP 129/83
[2021-01-29] MEDS: SUCRALFATE 1G TABLET PO SCH ×4 (06:35→21:31)
[2021-01-29] MEDS: INSULIN LISPRO 100 UNITS/ML SUBCUT SCH ×4 (06:36→21:39)
[2021-01-29] MEDS: BLOOD SUGAR DIAGNOSTIC STRIP TEST SCH ×4 (06:36→21:30)
[2021-01-29] MEDS: METOPROLOL TARTRATE 25MG TABLET PO SCH ×3 (06:36→21:32)
[2021-01-29 08:00] VITALS: BP 126/88
[2021-01-29] MEDS: RISPERIDONE 1MG TABLET PO SCH (08:44)
[2021-01-29] MEDS: APIXABAN 5 MG TABLET PO SCH ×2 (08:44→18:33)
[2021-01-29] MEDS: MAGNESIUM OXIDE 400MG TABLET PO SCH (08:44)
[2021-01-29] MEDS: PANTOPRAZOLE SODIUM 40 MG/VIAL IV SCH ×2 (08:45→18:32)
[2021-01-29 12:00] VITALS: BP 151/84
[2021-01-29 16:00] VITALS: BP 135/81
[2021-01-29 20:00] VITALS: BP 128/90
[2021-01-29] MEDS: QUETIAPINE FUMARATE 25MG TABLET PO SCH (21:32)
[2021-01-30] VITALS: BP 142/88
[2021-01-30] MEDS: DILTIAZEM HCL 90MG TABLET PO SCH ×4 (00:05→17:52)
[2021-01-30] MEDS: LORAZEPAM 1MG TABLET PO PRN (00:10)
[2021-01-30] MEDS: METOCLOPRAMIDE HCL 10MG/2ML VIAL IV SCH ×4 (00:10→17:52)
[2021-01-30 04:00] VITALS: BP 103/68
[2021-01-30] MEDS: METOPROLOL TARTRATE 25MG TABLET PO SCH ×3 (06:24→21:16)
[2021-01-30] MEDS: SUCRALFATE 1G TABLET PO SCH ×4 (06:24→21:16)
[2021-01-30] MEDS: BLOOD SUGAR DIAGNOSTIC STRIP TEST SCH ×4 (06:25→21:15)
[2021-01-30] MEDS: INSULIN LISPRO 100 UNITS/ML SUBCUT SCH ×4 (07:31→21:00)
[2021-01-30 08:00] VITALS: BP 136/74
[2021-01-30] MEDS: MAGNESIUM OXIDE 400MG TABLET PO SCH (09:47)
[2021-01-30] MEDS: RISPERIDONE 1MG TABLET PO SCH (09:47)
[2021-01-30] MEDS: APIXABAN 5 MG TABLET PO SCH ×2 (09:47→17:52)
[2021-01-30] MEDS: PANTOPRAZOLE SODIUM 40 MG/VIAL IV SCH ×2 (09:47→17:52)
[2021-01-30 12:00] VITALS: BP 138/80
[2021-01-30 16:00] VITALS: BP 125/74
[2021-01-30 20:00] VITALS: BP 129/78
[2021-01-30] MEDS: QUETIAPINE FUMARATE 25MG TABLET PO SCH (21:16)
[2021-01-31] VITALS: BP 149/76
[2021-01-31] MEDS: METOCLOPRAMIDE HCL 10MG/2ML VIAL IV SCH ×4 (00:42→18:21)
[2021-01-31] MEDS: DILTIAZEM HCL 90MG TABLET PO SCH ×4 (00:42→18:16)
[2021-01-31 04:00] VITALS: BP 119/89
[2021-01-31] MEDS: METOPROLOL TARTRATE 25MG TABLET PO SCH ×3 (06:36→22:10)
[2021-01-31] MEDS: SUCRALFATE 1G TABLET PO SCH ×4 (06:36→22:10)
[2021-01-31] MEDS: BLOOD SUGAR DIAGNOSTIC STRIP TEST SCH ×4 (06:36→21:00)
[2021-01-31] MEDS: INSULIN LISPRO 100 UNITS/ML SUBCUT SCH ×4 (07:30→22:27)
[2021-01-31 08:22] VITALS: BP 163/76
[2021-01-31] MEDS: MAGNESIUM OXIDE 400MG TABLET PO SCH (09:51)
[2021-01-31] MEDS: APIXABAN 5 MG TABLET PO SCH ×2 (09:51→17:13)
[2021-01-31] MEDS: RISPERIDONE 1MG TABLET PO SCH (09:51)
[2021-01-31] MEDS: PANTOPRAZOLE SODIUM 40 MG/VIAL IV SCH ×2 (10:25→17:18)
[2021-01-31 11:08] LABS: BASOPHILS % 0.7 % (0.0-2.0); EOSINOPHILS % 3.9 % (0.0-5.0); HEMATOCRIT. 33.6 % (42.0-52.0); HEMOGLOBIN. 11.5 g/dL (14.0-18.0); MEAN CORPUSCULAR HEMOGLOBIN 26.3 pg (28.0-32.0); MEAN CORPUSCULAR VOLUME 77.4 fL (80.0-94.0); MEAN PLATELET VOLUME 8.2 fl (7.4-10.4); MONOCYTES % 7.1 % (2.0-8.0); NEUTROPHILS % 69.3 % (40.0-76.0); PLATELET 277 x1000/uL (130-400); RED BLOOD CELL COUNT 4.35 mill/uL (4.7-6.1); RED CELL DISTRIBUTION WIDTH 16.3 % (11.6-14.6)
[2021-01-31 12:14] VITALS: BP 130/70
[2021-01-31] MEDS: FUROSEMIDE 40MG TABLET PO SCH (14:32)
[2021-01-31 15:30] VITALS: BP 142/85
[2021-01-31 20:00] VITALS: BP 132/51
[2021-01-31] MEDS: QUETIAPINE FUMARATE 25MG TABLET PO SCH (22:10)
[2021-02-01] VITALS: BP 125/61
[2021-02-01] MEDS: DILTIAZEM HCL 90MG TABLET PO SCH ×5 (00:37→23:56)
[2021-02-01] MEDS: METOCLOPRAMIDE HCL 10MG/2ML VIAL IV SCH ×5 (00:38→23:56)
[2021-02-01 04:00] VITALS: BP 142/82
[2021-02-01] MEDS: METOPROLOL TARTRATE 25MG TABLET PO SCH ×2 (06:15→14:00)
[2021-02-01] MEDS: BLOOD SUGAR DIAGNOSTIC STRIP TEST SCH ×4 (06:23→20:46)
[2021-02-01] MEDS: SUCRALFATE 1G TABLET PO SCH ×4 (06:23→20:46)
[2021-02-01 07:10] LABS: BASOPHILS % 0.9 % (0.0-2.0); EOSINOPHILS % 4.5 % (0.0-5.0); HEMATOCRIT. 31.1 % (42.0-52.0); HEMOGLOBIN. 10.6 g/dL (14.0-18.0); LYMPHOCYTES % 22.6 % (20.0-50.0); MEAN CORPUSCULAR HEMOGLOBIN 26.8 pg (28.0-32.0); MEAN CORPUSCULAR VOLUME 78.5 fL (80.0-94.0); MONOCYTES % 8.1 % (2.0-8.0); NEUTROPHILS % 63.9 % (40.0-76.0); PLATELET 264 x1000/uL (130-400); RED BLOOD CELL COUNT 3.96 mill/uL (4.7-6.1); RED CELL DISTRIBUTION WIDTH 16.3 % (11.6-14.6)
[2021-02-01] MEDS: INSULIN LISPRO 100 UNITS/ML SUBCUT SCH ×2 (07:39→12:00)
[2021-02-01 07:46] VITALS: BP 151/76
[2021-02-01] MEDS: PANTOPRAZOLE SODIUM 40 MG/VIAL IV SCH (08:42)
[2021-02-01] MEDS: FUROSEMIDE 40MG TABLET PO SCH (08:42)
[2021-02-01] MEDS: MAGNESIUM OXIDE 400MG TABLET PO SCH (08:43)
[2021-02-01] MEDS: APIXABAN 5 MG TABLET PO SCH ×2 (08:43→17:48)
[2021-02-01] MEDS: RISPERIDONE 1MG TABLET PO SCH (08:43)
[2021-02-01] MEDS ORDERED: POTASSIUM CHLORIDE 20MEQ TABLET SR PO NR (10:15)
[2021-02-01 12:15] VITALS: BP 116/75
[2021-02-01 16:00] VITALS: BP 138/67
[2021-02-01 20:00] VITALS: BP 143/78
[2021-02-01] MEDS: QUETIAPINE FUMARATE 25MG TABLET PO SCH (20:46)
[2021-02-02] VITALS: BP 127/88
[2021-02-02] MEDS ORDERED: DIGOXIN 250MCG TABLET PO NR (02:30)
[2021-02-02 04:00] VITALS: BP 131/88
[2021-02-02] MEDS: DILTIAZEM HCL 90MG TABLET PO SCH ×3 (05:04→17:43)
[2021-02-02] MEDS: METOCLOPRAMIDE HCL 10MG/2ML VIAL IV SCH ×3 (05:04→17:43)
[2021-02-02] MEDS: SUCRALFATE 1G TABLET PO SCH ×2 (06:37→11:23)
[2021-02-02 08:00] VITALS: BP 137/77
[2021-02-02] MEDS: APIXABAN 5 MG TABLET PO SCH ×2 (08:52→17:43)
[2021-02-02] MEDS: FUROSEMIDE 40MG TABLET PO SCH (08:52)
[2021-02-02] MEDS: MAGNESIUM OXIDE 400MG TABLET PO SCH (08:52)
[2021-02-02] MEDS ORDERED: DEXTROSE 50% WATER 50ML SYRINGE IV PRN (10:00)
[2021-02-02 10:27] LABS: BASOPHILS % 0.9 % (0.0-2.0); EOSINOPHILS % 3.7 % (0.0-5.0); HEMATOCRIT. 32.8 % (42.0-52.0); HEMOGLOBIN. 10.9 g/dL (14.0-18.0); LYMPHOCYTES % 20.3 % (20.0-50.0); MEAN CORPUSCULAR VOLUME 77.7 fL (80.0-94.0); MEAN PLATELET VOLUME 8.4 fl (7.4-10.4); MONOCYTES % 6.5 % (2.0-8.0); NEUTROPHILS % 68.6 % (40.0-76.0); PLATELET 291 x1000/uL (130-400); RED BLOOD CELL COUNT 4.22 mill/uL (4.7-6.1); RED CELL DISTRIBUTION WIDTH 16.2 % (11.6-14.6)
[2021-02-02 10:56] LABS: PHOSPHORUS 3.2 mg/dL (2.5-4.9)
[2021-02-02] MEDS: DOCUSATE SODIUM 250MG CAPSULE PO SCH (11:23)
[2021-02-02] MEDS: BISACODYL 5MG TABLET PO SCH (11:24)
[2021-02-02 11:58] VITALS: BP 118/81
[2021-02-02] MEDS: BLOOD SUGAR DIAGNOSTIC STRIP TEST SCH ×3 (12:34→21:00)
[2021-02-02] MEDS: INSULIN LISPRO 100 UNITS/ML SUBCUT SCH ×3 (12:34→21:00)
[2021-02-02] MEDS: METOPROLOL TARTRATE 25MG TABLET PO SCH ×2 (13:35→21:08)
[2021-02-02 16:00] VITALS: BP 113/68
[2021-02-02] MEDS ORDERED: DIGOXIN 500MCG/2ML AMP IV NR (16:00)
[2021-02-02 20:00] VITALS: BP 139/68
[2021-02-02] MEDS: QUETIAPINE FUMARATE 25MG TABLET PO SCH (21:09)
[2021-02-03] VITALS: BP 122/79
[2021-02-03] MEDS: METOCLOPRAMIDE HCL 10MG/2ML VIAL IV SCH ×4 (01:00→17:42)
[2021-02-03] MEDS: DILTIAZEM HCL 90MG TABLET PO SCH ×4 (01:00→17:41)
[2021-02-03 04:00] VITALS: BP 129/73
[2021-02-03] MEDS: METOPROLOL TARTRATE 25MG TABLET PO SCH ×3 (05:27→21:50)
[2021-02-03] MEDS: BLOOD SUGAR DIAGNOSTIC STRIP TEST SCH ×4 (06:32→21:49)
[2021-02-03] MEDS: INSULIN LISPRO 100 UNITS/ML SUBCUT SCH ×4 (07:50→21:00)
[2021-02-03 08:00] VITALS: BP 149/68
[2021-02-03] MEDS: DOCUSATE SODIUM 250MG CAPSULE PO SCH ×2 (08:48→17:41)
[2021-02-03] MEDS: APIXABAN 5 MG TABLET PO SCH ×2 (08:49→17:41)
[2021-02-03] MEDS: FUROSEMIDE 40MG TABLET PO SCH (08:49)
[2021-02-03] MEDS: BISACODYL 5MG TABLET PO SCH (08:49)
[2021-02-03] MEDS: MAGNESIUM OXIDE 400MG TABLET PO SCH (08:49)
[2021-02-03 12:00] VITALS: BP 160/68
[2021-02-03] MEDS ORDERED: LACTULOSE 20G/30ML UDC PO PRN (14:45)
[2021-02-03 16:00] VITALS: BP 155/65
[2021-02-03] MEDS ORDERED: DIGOXIN 500MCG/2ML AMP IV NR (17:00)
[2021-02-03 20:00] VITALS: BP 141/71
[2021-02-03] MEDS: QUETIAPINE FUMARATE 25MG TABLET PO SCH (21:50)
[2021-02-03] MEDS: SENNOSIDES 8.6MG TABLET PO SCH (21:50)
[2021-02-04] VITALS: BP 136/69
[2021-02-04] MEDS: DILTIAZEM HCL 90MG TABLET PO SCH ×4 (00:35→18:21)
[2021-02-04] MEDS: METOCLOPRAMIDE HCL 10MG/2ML VIAL IV SCH ×4 (00:35→18:21)
[2021-02-04 04:00] VITALS: BP 150/71
[2021-02-04] MEDS: METOPROLOL TARTRATE 25MG TABLET PO SCH ×3 (05:12→21:19)
[2021-02-04] MEDS: BLOOD SUGAR DIAGNOSTIC STRIP TEST SCH ×4 (06:50→21:18)
[2021-02-04] MEDS: INSULIN LISPRO 100 UNITS/ML SUBCUT SCH ×4 (07:42→21:00)
[2021-02-04 08:00] VITALS: BP 148/73
[2021-02-04] MEDS: MAGNESIUM OXIDE 400MG TABLET PO SCH (08:36)
[2021-02-04] MEDS: DOCUSATE SODIUM 250MG CAPSULE PO SCH ×2 (08:36→18:21)
[2021-02-04] MEDS: APIXABAN 5 MG TABLET PO SCH ×2 (08:36→18:21)
[2021-02-04] MEDS: FUROSEMIDE 40MG TABLET PO SCH (08:36)
[2021-02-04] MEDS: POLYETHYLENE GLYCOL 3350 (17GM) 1 DOSE PACK PO SCH (08:38)
[2021-02-04 08:51] LABS: BASOPHILS % 0.9 % (0.0-2.0); EOSINOPHILS % 4.2 % (0.0-5.0); HEMATOCRIT. 31.9 % (42.0-52.0); HEMOGLOBIN. 10.7 g/dL (14.0-18.0); LYMPHOCYTES % 22.2 % (20.0-50.0); MEAN CORPUSCULAR HEMOGLOBIN 25.9 pg (28.0-32.0); MEAN PLATELET VOLUME 8.4 fl (7.4-10.4); NEUTROPHILS % 65.7 % (40.0-76.0); PLATELET 335 x1000/uL (130-400); RED BLOOD CELL COUNT 4.14 mill/uL (4.7-6.1)
[2021-02-04 12:00] VITALS: BP 148/79
[2021-02-04 16:00] VITALS: BP 133/72
[2021-02-04 20:00] VITALS: BP 151/62
[2021-02-04] MEDS: QUETIAPINE FUMARATE 25MG TABLET PO SCH (21:19)
[2021-02-04] MEDS: SENNOSIDES 8.6MG TABLET PO SCH (21:19)
[2021-02-05] VITALS: BP 142/81
[2021-02-05] MEDS: DILTIAZEM HCL 90MG TABLET PO SCH ×4 (00:27→17:30)
[2021-02-05] MEDS: METOCLOPRAMIDE HCL 10MG/2ML VIAL IV SCH ×4 (00:28→17:30)
[2021-02-05 04:00] VITALS: BP 153/62
[2021-02-05] MEDS: METOPROLOL TARTRATE 25MG TABLET PO SCH ×3 (05:19→21:27)
[2021-02-05] MEDS: BLOOD SUGAR DIAGNOSTIC STRIP TEST SCH ×4 (06:22→20:21)
[2021-02-05] MEDS: INSULIN LISPRO 100 UNITS/ML SUBCUT SCH ×4 (07:50→21:28)
[2021-02-05 08:04] VITALS: BP 142/90
[2021-02-05] MEDS: DOCUSATE SODIUM 250MG CAPSULE PO SCH ×2 (08:40→17:30)
[2021-02-05] MEDS: APIXABAN 5 MG TABLET PO SCH ×2 (08:40→17:30)
[2021-02-05] MEDS: MAGNESIUM OXIDE 400MG TABLET PO SCH (08:40)
[2021-02-05] MEDS: POLYETHYLENE GLYCOL 3350 (17GM) 1 DOSE PACK PO SCH (08:40)
[2021-02-05] MEDS: FUROSEMIDE 40MG TABLET PO SCH (08:40)
[2021-02-05 12:12] VITALS: BP 135/84
[2021-02-05 16:25] VITALS: BP 142/67
[2021-02-05 19:34] VITALS: BP 119/56
[2021-02-05] MEDS: SENNOSIDES 8.6MG TABLET PO SCH (20:21)
[2021-02-05] MEDS: QUETIAPINE FUMARATE 25MG TABLET PO SCH (20:21)
[2021-02-06] VITALS: BP 128/68
[2021-02-06] MEDS: DILTIAZEM HCL 90MG TABLET PO SCH ×4 (00:43→17:41)
[2021-02-06] MEDS: METOCLOPRAMIDE HCL 10MG/2ML VIAL IV SCH ×4 (00:44→17:40)
[2021-02-06 04:00] VITALS: BP 148/84
[2021-02-06] MEDS: METOPROLOL TARTRATE 25MG TABLET PO SCH ×3 (05:31→21:17)
[2021-02-06] MEDS: BLOOD SUGAR DIAGNOSTIC STRIP TEST SCH ×4 (06:21→21:26)
[2021-02-06] MEDS: INSULIN LISPRO 100 UNITS/ML SUBCUT SCH ×4 (06:51→21:00)
[2021-02-06 08:05] VITALS: BP 160/95
[2021-02-06] MEDS: APIXABAN 5 MG TABLET PO SCH ×2 (08:14→17:40)
[2021-02-06] MEDS: MAGNESIUM OXIDE 400MG TABLET PO SCH (08:15)
[2021-02-06] MEDS: POLYETHYLENE GLYCOL 3350 (17GM) 1 DOSE PACK PO SCH (08:15)
[2021-02-06] MEDS: DOCUSATE SODIUM 250MG CAPSULE PO SCH ×2 (08:15→17:40)
[2021-02-06] MEDS: FUROSEMIDE 40MG TABLET PO SCH (08:15)
[2021-02-06 12:30] VITALS: BP 132/87
[2021-02-06 16:00] VITALS: BP 159/75
[2021-02-06 20:00] VITALS: BP 152/104
[2021-02-06] MEDS: QUETIAPINE FUMARATE 25MG TABLET PO SCH (21:16)
[2021-02-06] MEDS: SENNOSIDES 8.6MG TABLET PO SCH (21:17)
[2021-02-07] VITALS: BP 161/82
[2021-02-07] MEDS: METOCLOPRAMIDE HCL 10MG/2ML VIAL IV SCH ×4 (00:02→17:28)
[2021-02-07] MEDS: DILTIAZEM HCL 90MG TABLET PO SCH ×4 (00:11→17:30)
[2021-02-07 04:00] VITALS: BP 131/80
[2021-02-07] MEDS: METOPROLOL TARTRATE 25MG TABLET PO SCH ×3 (06:23→22:00)
[2021-02-07] MEDS: BLOOD SUGAR DIAGNOSTIC STRIP TEST SCH ×4 (07:20→21:00)
[2021-02-07 07:44] VITALS: BP 152/84
[2021-02-07] MEDS: INSULIN LISPRO 100 UNITS/ML SUBCUT SCH ×4 (07:50→22:01)
[2021-02-07] MEDS: POLYETHYLENE GLYCOL 3350 (17GM) 1 DOSE PACK PO SCH (09:49)
[2021-02-07] MEDS: MAGNESIUM OXIDE 400MG TABLET PO SCH (09:50)
[2021-02-07] MEDS: DOCUSATE SODIUM 250MG CAPSULE PO SCH ×2 (09:50→17:29)
[2021-02-07] MEDS: FUROSEMIDE 40MG TABLET PO SCH (09:52)
[2021-02-07] MEDS: APIXABAN 5 MG TABLET PO SCH ×2 (09:52→17:29)
[2021-02-07] MEDS ORDERED: POTASSIUM CHLORIDE 20MEQ TABLET SR PO SCH (10:15)
[2021-02-07 12:24] VITALS: BP 141/67
[2021-02-07 15:43] VITALS: BP 139/62
[2021-02-07 20:00] VITALS: BP 143/87
[2021-02-07] MEDS: SENNOSIDES 8.6MG TABLET PO SCH (21:58)
[2021-02-07] MEDS: QUETIAPINE FUMARATE 25MG TABLET PO SCH (21:58)
[2021-02-08] VITALS: BP 149/87
[2021-02-08] MEDS: METOCLOPRAMIDE HCL 10MG/2ML VIAL IV SCH ×4 (00:43→18:26)
[2021-02-08] MEDS: DILTIAZEM HCL 90MG TABLET PO SCH ×4 (00:43→18:26)
[2021-02-08 04:00] VITALS: BP 144/78
[2021-02-08] MEDS: METOPROLOL TARTRATE 25MG TABLET PO SCH ×3 (05:36→21:30)
[2021-02-08 06:51] LABS: BASOPHILS % 0.8 % (0.0-2.0); EOSINOPHILS % 4.1 % (0.0-5.0); HEMATOCRIT. 32.9 % (42.0-52.0); HEMOGLOBIN. 10.8 g/dL (14.0-18.0); LYMPHOCYTES % 23.3 % (20.0-50.0); MEAN CORPUSCULAR HEMOGLOBIN 25.5 pg (28.0-32.0); MEAN CORPUSCULAR VOLUME 77.5 fL (80.0-94.0); MEAN PLATELET VOLUME 8.3 fl (7.4-10.4); MONOCYTES % 7.4 % (2.0-8.0); NEUTROPHILS % 64.4 % (40.0-76.0); PLATELET 391 x1000/uL (130-400); RED BLOOD CELL COUNT 4.24 mill/uL (4.7-6.1); RED CELL DISTRIBUTION WIDTH 16.1 % (11.6-14.6)
[2021-02-08 07:40] LABS: PHOSPHORUS 3.6 mg/dL (2.5-4.9)
[2021-02-08] MEDS: INSULIN LISPRO 100 UNITS/ML SUBCUT SCH ×4 (07:50→20:45)
[2021-02-08 08:00] VITALS: BP 151/85
[2021-02-08] MEDS: BLOOD SUGAR DIAGNOSTIC STRIP TEST SCH ×4 (08:12→20:42)
[2021-02-08] MEDS ORDERED: POTASSIUM CHLORIDE 20MEQ TABLET SR PO NR (09:00)
[2021-02-08] MEDS: POLYETHYLENE GLYCOL 3350 (17GM) 1 DOSE PACK PO SCH (09:52)
[2021-02-08] MEDS: FUROSEMIDE 40MG TABLET PO SCH (09:53)
[2021-02-08] MEDS: MAGNESIUM OXIDE 400MG TABLET PO SCH (09:53)
[2021-02-08] MEDS: APIXABAN 5 MG TABLET PO SCH ×2 (09:53→18:26)
[2021-02-08] MEDS: DOCUSATE SODIUM 250MG CAPSULE PO SCH ×2 (09:53→18:26)
[2021-02-08 11:57] VITALS: BP 157/105
[2021-02-08 15:50] VITALS: BP 145/97
[2021-02-08 20:00] VITALS: BP 155/70
[2021-02-08] MEDS: SENNOSIDES 8.6MG TABLET PO SCH (20:42)
[2021-02-08] MEDS: QUETIAPINE FUMARATE 25MG TABLET PO SCH (20:42)
[2021-02-09] VITALS: BP 146/98
[2021-02-09] MEDS: METOCLOPRAMIDE HCL 10MG/2ML VIAL IV SCH ×4 (00:26→18:03)
[2021-02-09] MEDS: DILTIAZEM HCL 90MG TABLET PO SCH ×4 (00:27→18:02)
[2021-02-09 04:00] VITALS: BP 146/66
[2021-02-09] MEDS: METOPROLOL TARTRATE 25MG TABLET PO SCH ×3 (05:46→21:33)
[2021-02-09 07:15] LABS: BASOPHILS % 0.6 % (0.0-2.0); EOSINOPHILS % 3.6 % (0.0-5.0); HEMATOCRIT. 32.8 % (42.0-52.0); HEMOGLOBIN. 11.2 g/dL (14.0-18.0); LYMPHOCYTES % 28.5 % (20.0-50.0); MEAN CORPUSCULAR HEMOGLOBIN 26.3 pg (28.0-32.0); MEAN CORPUSCULAR VOLUME 77.2 fL (80.0-94.0); MEAN PLATELET VOLUME 8.3 fl (7.4-10.4); NEUTROPHILS % 59.3 % (40.0-76.0); PLATELET 404 x1000/uL (130-400); RED BLOOD CELL COUNT 4.25 mill/uL (4.7-6.1); RED CELL DISTRIBUTION WIDTH 15.7 % (11.6-14.6)
[2021-02-09] MEDS: INSULIN LISPRO 100 UNITS/ML SUBCUT SCH ×4 (07:50→21:00)
[2021-02-09] MEDS: BLOOD SUGAR DIAGNOSTIC STRIP TEST SCH ×4 (08:14→21:31)
[2021-02-09 08:55] VITALS: BP 152/74
[2021-02-09] MEDS: FUROSEMIDE 40MG TABLET PO SCH (09:29)
[2021-02-09] MEDS: APIXABAN 5 MG TABLET PO SCH ×2 (09:29→18:02)
[2021-02-09] MEDS: DOCUSATE SODIUM 250MG CAPSULE PO SCH ×2 (09:30→18:02)
[2021-02-09] MEDS: MAGNESIUM OXIDE 400MG TABLET PO SCH (09:30)
[2021-02-09] MEDS: POLYETHYLENE GLYCOL 3350 (17GM) 1 DOSE PACK PO SCH (09:30)
[2021-02-09] MEDS ORDERED: POTASSIUM CHLORIDE 20MEQ TABLET SR PO SCH (10:30)
[2021-02-09 11:30] VITALS: BP 129/78
[2021-02-09 16:22] VITALS: BP 146/86
[2021-02-09] MEDS: TAMSULOSIN HCL 0.4MG SR CAPSULE PO SCH (18:03)
[2021-02-09] MEDS ORDERED: WARF-53 PO (18:04)
[2021-02-09] MEDS ORDERED: BENZ1TAB7 PO (18:04)
[2021-02-09] MEDS ORDERED: WARF4TAB71 PO (18:04)
[2021-02-09] MEDS ORDERED: ABIL5 PO (18:05)
[2021-02-09 20:00] VITALS: BP 177/68
[2021-02-09] MEDS: SENNOSIDES 8.6MG TABLET PO SCH (21:33)
[2021-02-10] VITALS: BP 143/94
[2021-02-10] MEDS: METOCLOPRAMIDE HCL 10MG/2ML VIAL IV SCH ×4 (00:45→17:53)
[2021-02-10] MEDS: DILTIAZEM HCL 90MG TABLET PO SCH ×4 (00:45→17:53)
[2021-02-10 04:00] VITALS: BP 121/64
[2021-02-10] MEDS: METOPROLOL TARTRATE 25MG TABLET PO SCH ×3 (05:16→21:01)
[2021-02-10 06:25] LABS: BASOPHILS % 0.8 % (0.0-2.0); EOSINOPHILS % 3.7 % (0.0-5.0); HEMATOCRIT. 36.3 % (42.0-52.0); HEMOGLOBIN. 11.8 g/dL (14.0-18.0); LYMPHOCYTES % 27.4 % (20.0-50.0); MEAN CORPUSCULAR VOLUME 80.2 fL (80.0-94.0); MONOCYTES % 6.9 % (2.0-8.0); NEUTROPHILS % 61.2 % (40.0-76.0); RED BLOOD CELL COUNT 4.53 mill/uL (4.7-6.1); RED CELL DISTRIBUTION WIDTH 16.3 % (11.6-14.6)
[2021-02-10] MEDS: BLOOD SUGAR DIAGNOSTIC STRIP TEST SCH ×4 (07:14→20:51)
[2021-02-10] MEDS: INSULIN LISPRO 100 UNITS/ML SUBCUT SCH ×4 (07:15→21:17)
[2021-02-10 07:53] VITALS: BP 138/83
[2021-02-10] MEDS: POLYETHYLENE GLYCOL 3350 (17GM) 1 DOSE PACK PO SCH (08:39)
[2021-02-10] MEDS: DOCUSATE SODIUM 250MG CAPSULE PO SCH ×2 (08:39→17:52)
[2021-02-10] MEDS: FUROSEMIDE 40MG TABLET PO SCH (08:39)
[2021-02-10] MEDS: TAMSULOSIN HCL 0.4MG SR CAPSULE PO SCH (08:39)
[2021-02-10] MEDS: MAGNESIUM OXIDE 400MG TABLET PO SCH (08:39)
[2021-02-10] MEDS: APIXABAN 5 MG TABLET PO SCH ×2 (08:39→17:53)
[2021-02-10 09:10] LABS: MEAN PLATELET VOLUME 9.2 fl (7.4-10.4)
[2021-02-10 09:11] LABS: PLATELET 332 x1000/uL (130-400)
[2021-02-10 12:00] VITALS: BP 142/90
[2021-02-10 16:00] VITALS: BP 144/76
[2021-02-10 20:00] VITALS: BP 133/75
[2021-02-10] MEDS: SENNOSIDES 8.6MG TABLET PO SCH (21:01)
[2021-02-11] VITALS: BP 147/102
[2021-02-11] MEDS: METOCLOPRAMIDE HCL 10MG/2ML VIAL IV SCH ×4 (01:04→17:18)
[2021-02-11] MEDS: DILTIAZEM HCL 90MG TABLET PO SCH ×4 (01:06→17:19)
[2021-02-11 04:00] VITALS: BP_SYST 148
[2021-02-11] MEDS: METOPROLOL TARTRATE 25MG TABLET PO SCH ×3 (05:30→21:40)
[2021-02-11] MEDS: BLOOD SUGAR DIAGNOSTIC STRIP TEST SCH ×4 (06:22→20:46)
[2021-02-11] MEDS: INSULIN LISPRO 100 UNITS/ML SUBCUT SCH ×4 (07:50→21:42)
[2021-02-11 07:59] VITALS: BP 125/86
[2021-02-11] MEDS: DOCUSATE SODIUM 250MG CAPSULE PO SCH ×2 (09:33→17:00)
[2021-02-11] MEDS: MAGNESIUM OXIDE 400MG TABLET PO SCH (09:33)
[2021-02-11] MEDS: TAMSULOSIN HCL 0.4MG SR CAPSULE PO SCH (09:33)
[2021-02-11] MEDS: APIXABAN 5 MG TABLET PO SCH ×2 (09:33→17:18)
[2021-02-11] MEDS: FUROSEMIDE 40MG TABLET PO SCH (09:34)
[2021-02-11] MEDS: POLYETHYLENE GLYCOL 3350 (17GM) 1 DOSE PACK PO SCH (09:41)
[2021-02-11 12:00] VITALS: BP 131/78
[2021-02-11 16:00] VITALS: BP 146/90
[2021-02-11 20:00] VITALS: BP 149/87
[2021-02-11] MEDS: SENNOSIDES 8.6MG TABLET PO SCH (21:40)
[2021-02-12] VITALS (7 sets, daily range): BP systolic 109–171; BP diastolic 68–117
[2021-02-12] MEDS: METOCLOPRAMIDE HCL 10MG/2ML VIAL IV SCH ×4 (00:31→17:38)
[2021-02-12] MEDS: DILTIAZEM HCL 90MG TABLET PO SCH ×4 (00:31→17:38)
[2021-02-12] MEDS: METOPROLOL TARTRATE 25MG TABLET PO SCH ×3 (05:36→21:54)
[2021-02-12] MEDS: BLOOD SUGAR DIAGNOSTIC STRIP TEST SCH ×4 (06:25→21:00)
[2021-02-12] MEDS: DOCUSATE SODIUM 250MG CAPSULE PO SCH ×2 (08:52→17:38)
[2021-02-12] MEDS: TAMSULOSIN HCL 0.4MG SR CAPSULE PO SCH (08:54)
[2021-02-12] MEDS: APIXABAN 5 MG TABLET PO SCH ×2 (08:55→17:39)
[2021-02-12] MEDS: FUROSEMIDE 40MG TABLET PO SCH (08:55)
[2021-02-12] MEDS: MAGNESIUM OXIDE 400MG TABLET PO SCH (08:55)
[2021-02-12] MEDS: POLYETHYLENE GLYCOL 3350 (17GM) 1 DOSE PACK PO SCH (08:56)
[2021-02-12] MEDS: INSULIN LISPRO 100 UNITS/ML SUBCUT SCH ×4 (09:02→22:04)
[2021-02-12] MEDS: SENNOSIDES 8.6MG TABLET PO SCH (21:54)
[2021-02-13] VITALS: BP_SYST 142; BP_SYST 153; BP_DIAS 103; BP_DIAS 77
[2021-02-13] MEDS: DILTIAZEM HCL 90MG TABLET PO SCH ×4 (01:00→17:15)
[2021-02-13] MEDS: METOCLOPRAMIDE HCL 10MG/2ML VIAL IV SCH ×4 (01:00→17:14)
[2021-02-13 04:00] VITALS: BP 148/100
[2021-02-13] MEDS: METOPROLOL TARTRATE 25MG TABLET PO SCH ×3 (06:20→22:04)
[2021-02-13] MEDS: BLOOD SUGAR DIAGNOSTIC STRIP TEST SCH ×4 (06:36→21:00)
[2021-02-13] MEDS: INSULIN LISPRO 100 UNITS/ML SUBCUT SCH ×4 (06:40→21:00)
[2021-02-13 08:00] VITALS: BP 123/86
[2021-02-13] MEDS: APIXABAN 5 MG TABLET PO SCH ×2 (08:44→17:13)
[2021-02-13] MEDS: MAGNESIUM OXIDE 400MG TABLET PO SCH (08:45)
[2021-02-13] MEDS: DOCUSATE SODIUM 250MG CAPSULE PO SCH ×2 (08:45→17:00)
[2021-02-13] MEDS: FUROSEMIDE 40MG TABLET PO SCH (08:45)
[2021-02-13] MEDS: POLYETHYLENE GLYCOL 3350 (17GM) 1 DOSE PACK PO SCH (08:46)
[2021-02-13] MEDS: TAMSULOSIN HCL 0.4MG SR CAPSULE PO SCH (08:46)
[2021-02-13 12:00] VITALS: BP 132/94
[2021-02-13 16:00] VITALS: BP 144/63
[2021-02-13 20:00] VITALS: BP 137/88
[2021-02-13] MEDS: SENNOSIDES 8.6MG TABLET PO SCH (22:51)
[2021-02-14] VITALS: BP 159/105
[2021-02-14] MEDS: METOCLOPRAMIDE HCL 10MG/2ML VIAL IV SCH ×4 (00:59→18:07)
[2021-02-14] MEDS: DILTIAZEM HCL 90MG TABLET PO SCH ×4 (01:00→18:07)
[2021-02-14 04:00] VITALS: BP 153/111
[2021-02-14] MEDS: METOPROLOL TARTRATE 25MG TABLET PO SCH ×3 (05:48→22:23)
[2021-02-14] MEDS: INSULIN LISPRO 100 UNITS/ML SUBCUT SCH ×4 (06:58→21:00)
[2021-02-14] MEDS: BLOOD SUGAR DIAGNOSTIC STRIP TEST SCH ×4 (06:58→21:00)
[2021-02-14 08:11] VITALS: BP 154/94
[2021-02-14] MEDS: POLYETHYLENE GLYCOL 3350 (17GM) 1 DOSE PACK PO SCH (08:51)
[2021-02-14] MEDS: DOCUSATE SODIUM 250MG CAPSULE PO SCH ×2 (08:51→17:00)
[2021-02-14] MEDS: MAGNESIUM OXIDE 400MG TABLET PO SCH (08:52)
[2021-02-14] MEDS: TAMSULOSIN HCL 0.4MG SR CAPSULE PO SCH (08:52)
[2021-02-14] MEDS: APIXABAN 5 MG TABLET PO SCH ×2 (08:52→18:06)
[2021-02-14] MEDS: FUROSEMIDE 40MG TABLET PO SCH (08:52)
[2021-02-14 12:00] VITALS: BP 131/87
[2021-02-14] MEDS ORDERED: POLY17PO3 PO (14:18)
[2021-02-14] MEDS ORDERED: DILT90TA2 PO (14:18)
[2021-02-14] MEDS ORDERED: TAMS-11 PO (14:18)
[2021-02-14] MEDS ORDERED: SENN-257 PO (14:18)
[2021-02-14] MEDS ORDERED: FURO40TA5 PO (14:18)
[2021-02-14] MEDS ORDERED: METO25TA6 PO (14:18)
[2021-02-14] MEDS ORDERED: MAGN400C MT (14:18)
[2021-02-14 20:00] VITALS: BP 170/115
[2021-02-14] MEDS: SENNOSIDES 8.6MG TABLET PO SCH (22:23)
[2021-02-15] VITALS: BP 159/97
[2021-02-15] MEDS: DILTIAZEM HCL 90MG TABLET PO SCH ×5 (01:02→17:27)
[2021-02-15 04:00] VITALS: BP 137/106
[2021-02-15] MEDS: METOPROLOL TARTRATE 25MG TABLET PO SCH ×4 (05:19→21:30)
[2021-02-15] MEDS: BLOOD SUGAR DIAGNOSTIC STRIP TEST SCH ×4 (06:56→21:29)
[2021-02-15 08:00] VITALS: BP 158/83
[2021-02-15] MEDS: DOCUSATE SODIUM 250MG CAPSULE PO SCH ×2 (08:32→17:41)
[2021-02-15] MEDS: MAGNESIUM OXIDE 400MG TABLET PO SCH (08:33)
[2021-02-15] MEDS: FUROSEMIDE 40MG TABLET PO SCH (08:33)
[2021-02-15] MEDS: APIXABAN 5 MG TABLET PO SCH ×2 (08:33→17:41)
[2021-02-15] MEDS: TAMSULOSIN HCL 0.4MG SR CAPSULE PO SCH (08:39)
[2021-02-15] MEDS: POLYETHYLENE GLYCOL 3350 (17GM) 1 DOSE PACK PO SCH (08:40)
[2021-02-15] MEDS: INSULIN LISPRO 100 UNITS/ML SUBCUT SCH ×4 (08:43→21:00)
[2021-02-15 12:00] VITALS: BP 143/65
[2021-02-15 12:21] LABS: BASOPHILS % 0.9 % (0.0-2.0); EOSINOPHILS % 2.5 % (0.0-5.0); HEMATOCRIT. 34.5 % (42.0-52.0); HEMOGLOBIN. 11.4 g/dL (14.0-18.0); LYMPHOCYTES % 21.1 % (20.0-50.0); MEAN CORPUSCULAR HEMOGLOBIN 25.5 pg (28.0-32.0); MEAN CORPUSCULAR VOLUME 77.5 fL (80.0-94.0); MONOCYTES % 8.8 % (2.0-8.0); NEUTROPHILS % 66.7 % (40.0-76.0); PLATELET 397 x1000/uL (130-400); RED BLOOD CELL COUNT 4.46 mill/uL (4.7-6.1); RED CELL DISTRIBUTION WIDTH 16.2 % (11.6-14.6)
[2021-02-15 17:00] VITALS: BP 135/95
[2021-02-15 20:00] VITALS: BP 130/77
[2021-02-15] MEDS: SENNOSIDES 8.6MG TABLET PO SCH (21:30)
[2021-02-16] VITALS (7 sets, daily range): BP systolic 119–174; BP diastolic 74–121
[2021-02-16] MEDS: DILTIAZEM HCL 90MG TABLET PO SCH ×4 (00:59→17:29)
[2021-02-16] MEDS: METOPROLOL TARTRATE 25MG TABLET PO SCH ×4 (05:21→21:02)
[2021-02-16] MEDS: BLOOD SUGAR DIAGNOSTIC STRIP TEST SCH ×4 (06:41→21:02)
[2021-02-16] MEDS: INSULIN LISPRO 100 UNITS/ML SUBCUT SCH ×4 (07:50→21:00)
[2021-02-16] MEDS: DOCUSATE SODIUM 250MG CAPSULE PO SCH ×2 (10:41→17:29)
[2021-02-16] MEDS: APIXABAN 5 MG TABLET PO SCH ×2 (10:42→17:29)
[2021-02-16] MEDS: FUROSEMIDE 40MG TABLET PO SCH (10:43)
[2021-02-16] MEDS: TAMSULOSIN HCL 0.4MG SR CAPSULE PO SCH (10:43)
[2021-02-16] MEDS: MAGNESIUM OXIDE 400MG TABLET PO SCH (10:43)
[2021-02-16] MEDS: POLYETHYLENE GLYCOL 3350 (17GM) 1 DOSE PACK PO SCH (10:44)
[2021-02-16 16:29] LABS: BG BASE EXCESS 5.7 mmol/L (-2.0-2.0); BG CARBOXYHEMOGLOBIN 0.4 % (0.5-1.5); BG DEOXYHEMOGLOBIN 6.9 % (0.0-5.0); BG FRACTION INSPIRED OXYGEN 21; BG HCO3 ACT 30.8 mmol/L (22.0-26.0); BG METHEMOGLOBIN 0.2 % (0.0-1.5); BG OXYGEN SATURATION 93.1 % (92.0-98.5); BG OXYHEMOGLOBIN 92.5 % (94.0-97.0); BG PCO2 46.8 mmHg (35.0-45.0); BG PH 7.436 (7.350-7.450); BG PO2 67.4 mmHg (75.0-100.0); BG SAMPLE SITE RIGHT RADIAL; BG TOTAL HEMOGLOBIN 12.8 g/dL (12.0-18.0); BG VENT MODE ROOM AIR
[2021-02-16] MEDS: SENNOSIDES 8.6MG TABLET PO SCH (21:02)
[2021-02-17] VITALS: BP 141/89
[2021-02-17] MEDS: DILTIAZEM HCL 90MG TABLET PO SCH ×4 (00:47→18:56)
[2021-02-17 04:00] VITALS: BP 150/91
[2021-02-17] MEDS: METOPROLOL TARTRATE 25MG TABLET PO SCH ×3 (05:01→20:18)
[2021-02-17] MEDS: BLOOD SUGAR DIAGNOSTIC STRIP TEST SCH ×4 (06:22→20:21)
[2021-02-17] MEDS: INSULIN LISPRO 100 UNITS/ML SUBCUT SCH ×4 (07:50→20:26)
[2021-02-17 08:00] VITALS: BP 126/81
[2021-02-17] MEDS: TAMSULOSIN HCL 0.4MG SR CAPSULE PO SCH (09:05)
[2021-02-17] MEDS: POLYETHYLENE GLYCOL 3350 (17GM) 1 DOSE PACK PO SCH (09:05)
[2021-02-17] MEDS: DOCUSATE SODIUM 250MG CAPSULE PO SCH ×2 (09:05→18:56)
[2021-02-17] MEDS: FUROSEMIDE 40MG TABLET PO SCH (09:06)
[2021-02-17] MEDS: MAGNESIUM OXIDE 400MG TABLET PO SCH (09:06)
[2021-02-17] MEDS: APIXABAN 5 MG TABLET PO SCH ×2 (09:06→18:56)
[2021-02-17 12:00] VITALS: BP 145/73
[2021-02-17 16:00] VITALS: BP 160/80
[2021-02-17 20:00] VITALS: BP 145/71
[2021-02-17] MEDS: SENNOSIDES 8.6MG TABLET PO SCH (20:17)
[2021-02-18] VITALS: BP 154/79
[2021-02-18] MEDS: DILTIAZEM HCL 90MG TABLET PO SCH ×4 (00:02→18:00)
[2021-02-18 04:00] VITALS: BP 175/120
[2021-02-18] MEDS: METOPROLOL TARTRATE 25MG TABLET PO SCH ×3 (05:14→20:28)
[2021-02-18] MEDS: BLOOD SUGAR DIAGNOSTIC STRIP TEST SCH ×4 (05:51→20:30)
[2021-02-18] MEDS: INSULIN LISPRO 100 UNITS/ML SUBCUT SCH ×4 (05:51→20:30)
[2021-02-18 06:30] VITALS: BP 140/70
[2021-02-18] MEDS: POLYETHYLENE GLYCOL 3350 (17GM) 1 DOSE PACK PO SCH (09:07)
[2021-02-18] MEDS: APIXABAN 5 MG TABLET PO SCH ×2 (09:07→18:37)
[2021-02-18] MEDS: DOCUSATE SODIUM 250MG CAPSULE PO SCH ×2 (09:08→18:36)
[2021-02-18] MEDS: TAMSULOSIN HCL 0.4MG SR CAPSULE PO SCH (09:08)
[2021-02-18] MEDS: FUROSEMIDE 40MG TABLET PO SCH (09:08)
[2021-02-18] MEDS: MAGNESIUM OXIDE 400MG TABLET PO SCH (09:08)
[2021-02-18 15:20] VITALS: BP 130/68
[2021-02-18 16:00] VITALS: BP 130/83
[2021-02-18 20:00] VITALS: BP 129/96
[2021-02-18] MEDS: SENNOSIDES 8.6MG TABLET PO SCH (20:26)
[2021-02-19] VITALS (7 sets, daily range): BP systolic 89–147; BP diastolic 57–110
[2021-02-19] MEDS: METOPROLOL TARTRATE 25MG TABLET PO SCH ×3 (05:51→23:19)
[2021-02-19] MEDS: DILTIAZEM HCL 90MG TABLET PO SCH ×5 (05:52→23:22)
[2021-02-19] MEDS: BLOOD SUGAR DIAGNOSTIC STRIP TEST SCH ×4 (05:52→20:58)
[2021-02-19] MEDS: INSULIN LISPRO 100 UNITS/ML SUBCUT SCH ×4 (05:53→20:59)
[2021-02-19 07:01] LABS: BASOPHILS % 0.7 % (0.0-2.0); EOSINOPHILS % 3.6 % (0.0-5.0); HEMATOCRIT. 36.1 % (42.0-52.0); LYMPHOCYTES % 27.6 % (20.0-50.0); MEAN CORPUSCULAR HEMOGLOBIN 25.5 pg (28.0-32.0); MONOCYTES % 9.1 % (2.0-8.0); RED BLOOD CELL COUNT 4.68 mill/uL (4.7-6.1); RED CELL DISTRIBUTION WIDTH 16.1 % (11.6-14.6)
[2021-02-19] MEDS: MAGNESIUM OXIDE 400MG TABLET PO SCH (09:33)
[2021-02-19] MEDS: TAMSULOSIN HCL 0.4MG SR CAPSULE PO SCH (09:33)
[2021-02-19] MEDS: POLYETHYLENE GLYCOL 3350 (17GM) 1 DOSE PACK PO SCH (09:33)
[2021-02-19] MEDS: DOCUSATE SODIUM 250MG CAPSULE PO SCH ×2 (09:33→18:51)
[2021-02-19] MEDS: FUROSEMIDE 40MG TABLET PO SCH (09:33)
[2021-02-19] MEDS: APIXABAN 5 MG TABLET PO SCH ×2 (09:33→18:52)
[2021-02-19] MEDS ORDERED: POTASSIUM CHLORIDE 20MEQ TABLET SR PO NR (10:30)
[2021-02-19 16:38] LABS: MEAN PLATELET VOLUME 9.1 fl (7.4-10.4); PLATELET 297 x1000/uL (130-400)
[2021-02-19] MEDS ORDERED: ENOXAPARIN 120MG/0.8ML SYR SUBCUT SCH (17:00)
[2021-02-19] MEDS: SENNOSIDES 8.6MG TABLET PO SCH (21:23)
[2021-02-20] VITALS: BP 103/99
[2021-02-20 00:16] LABS: CLARITY URINE CLOUDY (CLEAR); COLOR URINE YELLOW (YELLOW); KETONES URINE NEGATIVE (NEGATIVE); LEUKOCYTE ESTERASE URINE NEGATIVE (NEGATIVE); NITRITE URINE NEGATIVE (NEGATIVE); OCCULT BLOOD URINE NEGATIVE (NEGATIVE); PH URINE 7.5 (4.5-8.0); PROTEIN URINE 2+ (NEGATIVE); SPECIFIC GRAVITY URINE 1.017 (1.005-1.030); UROBILINOGEN URINE 0.2 E.U./dL (0.2-1.0)
[2021-02-20 04:00] VITALS: BP 153/108
[2021-02-20] MEDS: DILTIAZEM HCL 90MG TABLET PO SCH ×3 (05:47→18:05)
[2021-02-20] MEDS: METOPROLOL TARTRATE 25MG TABLET PO SCH ×3 (05:48→21:26)
[2021-02-20] MEDS: INSULIN LISPRO 100 UNITS/ML SUBCUT SCH ×4 (05:51→21:00)
[2021-02-20] MEDS: BLOOD SUGAR DIAGNOSTIC STRIP TEST SCH ×3 (05:51→21:25)
[2021-02-20 08:00] VITALS: BP 154/91
[2021-02-20 08:18] LABS: CHLORIDE 103 mEq/L (98-107)
[2021-02-20 08:20] LABS: BASOPHILS % 0.6 % (0.0-2.0); EOSINOPHILS % 3.9 % (0.0-5.0); HEMATOCRIT. 36.7 % (42.0-52.0); HEMOGLOBIN. 12.2 g/dL (14.0-18.0); LYMPHOCYTES % 25.5 % (20.0-50.0); MEAN CORPUSCULAR HEMOGLOBIN 25.5 pg (28.0-32.0); MEAN CORPUSCULAR VOLUME 76.8 fL (80.0-94.0); MEAN PLATELET VOLUME 8.4 fl (7.4-10.4); MONOCYTES % 9.4 % (2.0-8.0); NEUTROPHILS % 60.6 % (40.0-76.0); PLATELET 327 x1000/uL (130-400); RED BLOOD CELL COUNT 4.78 mill/uL (4.7-6.1); RED CELL DISTRIBUTION WIDTH 16.2 % (11.6-14.6)
[2021-02-20] MEDS: DOCUSATE SODIUM 250MG CAPSULE PO SCH ×2 (09:09→18:04)
[2021-02-20] MEDS: FUROSEMIDE 40MG TABLET PO SCH (09:09)
[2021-02-20] MEDS: TAMSULOSIN HCL 0.4MG SR CAPSULE PO SCH (09:10)
[2021-02-20] MEDS: APIXABAN 5 MG TABLET PO SCH ×2 (09:10→18:04)
[2021-02-20] MEDS: POLYETHYLENE GLYCOL 3350 (17GM) 1 DOSE PACK PO SCH (09:11)
[2021-02-20] MEDS ORDERED: POTASSIUM CHLORIDE 20MEQ TABLET SR PO NR (11:30)
[2021-02-20 12:00] VITALS: BP 157/98
[2021-02-20 16:00] VITALS: BP 143/77
[2021-02-20 20:00] VITALS: BP 129/72
[2021-02-20] MEDS: SENNOSIDES 8.6MG TABLET PO SCH (21:30)
[2021-02-21] MEDS: DILTIAZEM HCL 90MG TABLET PO SCH ×4 (01:09→12:31)
[2021-02-21 04:00] VITALS: BP 178/109
[2021-02-21] MEDS: METOPROLOL TARTRATE 25MG TABLET PO SCH ×2 (05:00→14:00)
[2021-02-21] MEDS: BLOOD SUGAR DIAGNOSTIC STRIP TEST SCH ×3 (06:34→17:20)
[2021-02-21 07:04] LABS: BASOPHILS % 1.1 % (0.0-2.0); EOSINOPHILS % 3.7 % (0.0-5.0); HEMATOCRIT. 37.4 % (42.0-52.0); HEMOGLOBIN. 12.4 g/dL (14.0-18.0); LYMPHOCYTES % 28.9 % (20.0-50.0); MEAN CORPUSCULAR HEMOGLOBIN 25.5 pg (28.0-32.0); MEAN CORPUSCULAR VOLUME 76.7 fL (80.0-94.0); MEAN PLATELET VOLUME 8.9 fl (7.4-10.4); MONOCYTES % 8.5 % (2.0-8.0); NEUTROPHILS % 57.8 % (40.0-76.0); PLATELET 276 x1000/uL (130-400); RED BLOOD CELL COUNT 4.87 mill/uL (4.7-6.1); RED CELL DISTRIBUTION WIDTH 16.3 % (11.6-14.6)
[2021-02-21] MEDS: INSULIN LISPRO 100 UNITS/ML SUBCUT SCH ×2 (07:50→12:38)
[2021-02-21 08:00] VITALS: BP 148/83
[2021-02-21] MEDS: POLYETHYLENE GLYCOL 3350 (17GM) 1 DOSE PACK PO SCH (09:00)
[2021-02-21] MEDS: APIXABAN 5 MG TABLET PO SCH ×2 (09:55→17:00)
[2021-02-21] MEDS: TAMSULOSIN HCL 0.4MG SR CAPSULE PO SCH (09:56)
[2021-02-21] MEDS: FUROSEMIDE 40MG TABLET PO SCH (09:56)
[2021-02-21] MEDS: DOCUSATE SODIUM 250MG CAPSULE PO SCH ×2 (09:57→17:00)
[2021-02-21 12:00] VITALS: BP 152/115
[2021-02-21 12:05] VITALS: BP 140/90
[2021-02-21 14:00] VITALS: BP 104/71
[2021-02-21 15:43] VITALS: BP 104/71
== END 2021-02-21 17:15 | disposition home or self-care (01) | DRG 133 ==
LOC: ER 18:19 → ENRESERV 12-25 00:52 → CANRESERV 12-25 00:52 → MICUSO 12-25 02:26 → EDBEDREQSVC 12-25 03:14 → EDBEDREQDT 12-25 03:14 → EDBEDREQTM 12-25 03:14 → EDBEDREQ 12-25 03:14 → EDBEDREQTM 12-25 03:56 → EDBEDREQSVC 12-25 03:56 → CVICU 12-26 06:30 → 5EST 12-28 15:30 → 6WST 01-28 13:36 → 6EST 02-10 09:59
PROVIDERS: ADMIT Internal Medicine; ATTEND Internal Medicine
PROC: 5A09357 Assistance with Respiratory Ventilation, Less than 24 Consecutive Hours, Continuous Positive Airway Pressure (ICD-10-PCS; principal; 2020-12-27)
PROC: 5A09457 Assistance with Respiratory Ventilation, 24-96 Consecutive Hours, Continuous Positive Airway Pressure (ICD-10-PCS; 2020-12-28)
PROC: 5A09457 Assistance with Respiratory Ventilation, 24-96 Consecutive Hours, Continuous Positive Airway Pressure (ICD-10-PCS; 2020-12-30)
PROC: 5A09457 Assistance with Respiratory Ventilation, 24-96 Consecutive Hours, Continuous Positive Airway Pressure (ICD-10-PCS; 2021-01-01)
PROC: 5A09357 Assistance with Respiratory Ventilation, Less than 24 Consecutive Hours, Continuous Positive Airway Pressure (ICD-10-PCS; 2021-01-02)
PROC: 5A09357 Assistance with Respiratory Ventilation, Less than 24 Consecutive Hours, Continuous Positive Airway Pressure (ICD-10-PCS; 2021-01-04)
PROC: 0D9670Z Drainage of Stomach with Drainage Device, Via Natural or Artificial Opening (ICD-10-PCS; 2021-01-07)
PROC: 05HY33Z Insertion of Infusion Device into Upper Vein, Percutaneous Approach (ICD-10-PCS; 2021-01-07)
PROC: B54MZZA Ultrasonography of Right Upper Extremity Veins, Guidance (ICD-10-PCS; 2021-01-07)
PROC: 06HY33Z Insertion of Infusion Device into Lower Vein, Percutaneous Approach (ICD-10-PCS; 2021-01-09)
PROC: B54BZZA Ultrasonography of Right Lower Extremity Veins, Guidance (ICD-10-PCS; 2021-01-09)
PROC: 5A09357 Assistance with Respiratory Ventilation, Less than 24 Consecutive Hours, Continuous Positive Airway Pressure (ICD-10-PCS; 2021-02-15)
DX: J96.21 Acute and chronic respiratory failure with hypoxia (principal); N17.0 Acute kidney failure with tubular necrosis; I50.23 Acute on chronic systolic (congestive) heart failure; G93.41 Metabolic encephalopathy; E44.1 Mild protein-calorie malnutrition; I13.0 Hypertensive heart and chronic kidney disease with heart failure and stage 1 through stage 4 chronic kidney disease, or unspecified chronic kidney disease; Z20.822 Contact with and (suspected) exposure to COVID-19; J91.8 Pleural effusion in other conditions classified elsewhere; E87.4 Mixed disorder of acid-base balance; E87.2 Acidosis; E66.2 Morbid (severe) obesity with alveolar hypoventilation; D50.9 Iron deficiency anemia, unspecified; E11.22 Type 2 diabetes mellitus with diabetic chronic kidney disease; D72.821 Monocytosis (symptomatic); I16.1 Hypertensive emergency; I48.92 Unspecified atrial flutter; J45.909 Unspecified asthma, uncomplicated; N18.9 Chronic kidney disease, unspecified; E83.42 Hypomagnesemia; E87.6 Hypokalemia; G47.33 Obstructive sleep apnea (adult) (pediatric); I42.9 Cardiomyopathy, unspecified; I48.0 Paroxysmal atrial fibrillation; J96.22 Acute and chronic respiratory failure with hypercapnia; K76.0 Fatty (change of) liver, not elsewhere classified; K92.0 Hematemesis; N20.0 Calculus of kidney; F20.9 Schizophrenia, unspecified; N12 Tubulo-interstitial nephritis, not specified as acute or chronic; Z78.1 Physical restraint status; Z79.01 Long term (current) use of anticoagulants; Z87.11 Personal history of peptic ulcer disease; Z79.899 Other long term (current) drug therapy; Z68.41 Body mass index [BMI] 40.0-44.9, adult; Z95.810 Presence of automatic (implantable) cardiac defibrillator
CPT/HCPCS: 36415; 36600; 71045; 74018; 74176; 76700; 76770; 76937; 78580; 80048; 80053; 80061; 80076; 80162; 80305; 81003; 82140; 82375; 82550; 82570; 82607; 82728; 82746; 82805; 82962; 83036; 83520; 83540; 83550; 83605; 83735; 83880; 84100; 84132; 84145; 84300; 84443; 84484; 85014; 85018; 85025; 85379; 86038; 86160; 86256; 86803; 87077; 87186; 87340; 87426; 90686; 90732; 93005; 93306; 93970; 94640; 94660; 97110; 97116; 97162; 97166; 97530; 97535; 99291; A6261; C1725; C1769; C1893; C9113; J0153; J0360; J0696; J1160; J1644; J1650; J1815; J1940; J2405; J2765; J2930; J3475; J3480; J3490; J7040; J7042; J7060; J7512; Q9963; A4315